=== PATIENT | female | born 1950 | race Caucasian/White ===

== ENCOUNTER 2023-02-19 06:50 | Day surgery (SDC) | payer MEDICARE, OTHER, SELFPAY ==
[2023-02-19 07:16] VITALS: BP 158/73; PULSE 97; RESP 16; TEMP 35.9; O2SAT 99; BMI 19.5
[2023-02-19] MEDS: LACTATED RINGER'S SOLUTION 1,000 ML 50 ML IV (07:34)
[2023-02-19 08:55] VITALS: BP 123/55; PULSE 66; RESP 16; TEMP 36.9; O2SAT 98
--- NOTE | 2023-02-19 09:03 | OP_ITS ---
OPERATION DATE: ??02/19/2023 PREOPERATIVE DIAGNOSIS:? Personal history of colon polyps. POSTOPERATIVE DIAGNOSIS:? Ascending colon polyp, flat lesion around the fold, approximately 5 mm, also sigmoid diverticulosis. PROCEDURE:? Colonoscopy to cecum with cold forceps polypectomy x1. SURGEON:? Jona Bang M.D. ANESTHESIA:? Monitored anesthesia care. ESTIMATED BLOOD LOSS:? Less than 1 mL. INDICATIONS AND CONSENT:? Patient is a 72-year-old female personal history of colon polyps, now presents for surveillance colonoscopy.? Indications, risks, benefits, alternatives of proceeding with colonoscopy were explained extensively to the patient, including the risks of bleeding, colon perforation or anesthetic complications.? All of her questions were answered.? Informed consent was obtained. PROCEDURE:? Patient brought to the operating room, placed in the left lateral decubitus position.? Monitored anesthesia care was provided.? Rectal exam was performed which showed no masses or blood.? The scope was inserted into the anal canal.? Under direct visualization was advanced.? With the aid of abdominal compression, it was advanced to the cecum.? There was noted to be a redundant, tortuous colon with a good prep.? Cecal markings were clearly identified.? Upon withdrawal of the scope, mucosal surfaces were carefully examined.? Within the ascending colon, around the fold, there was a flat, low lesion, approximately 5 mm that was removed in a piecemeal fashion with cold biopsy forceps with good hemostasis.? No other mass lesions were noted.? There was severe sigmoid diverticulosis with redundancy of the colon.? The scope was retroflexed in the anal canal.? There were noted to be some prominent rectal veins.? No significant hemorrhoidal disease.? Scope was then withdrawn.? Patient tolerated procedure well, was sent to recovery room in good condition. CC:? Patient?s family physician WILLI
[2023-02-19 09:10] VITALS: BP 112/56; PULSE 52; RESP 14; O2SAT 100
[2023-02-19 09:25] VITALS: BP 128/60; PULSE 56; RESP 16; O2SAT 100
[2023-02-19 09:40] VITALS: BP 144/68; PULSE 54; RESP 14; O2SAT 100
== END 2023-02-19 09:45 | disposition home or self-care (01) ==
PROVIDERS: PCP Family Medicine; Visit Provider Surgery
PROC: (CPT 45380; principal; 2023-02-19 08:10)
DX: D12.2 Benign neoplasm of ascending colon (principal); Z86.010 Personal history of colon polyps; E03.9 Hypothyroidism, unspecified; E55.9 Vitamin D deficiency, unspecified; Z79.899 Other long term (current) drug therapy; Z79.890 Hormone replacement therapy; M54.16 Radiculopathy, lumbar region; Z90.710 Acquired absence of both cervix and uterus
CPT/HCPCS: 45380; 36415; 88305; J2704

== ENCOUNTER 2023-06-27 09:46 | Outpatient (OUT) | payer MEDICARE, OTHER, SELFPAY ==
--- NOTE | 2023-06-27 09:48 | MM_ITS ---
Patient: PARTH JOHNSON Exam Date: 06/27/2023 : 1950 Gender:F Ordering : DR Joel Arrington . Admission #: [id number] Family : Order #: [id number] CLICK HERE TO VIEW EXAM RADIOLOGY REPORT PROCEDURE: MM TOMOSYNTHESIS SCREENING BI COMPARISON: MG MAMM SCREEN 3D REYES CAD, 06/25/2021. MG MAMM SCREEN 3D REYES CAD, 06/26/2022. INDICATIONS: Screening Calculator Name NCI Breast Cancer Risk Assessment Tool 5 Year Breast Cancer Risk 2.60% Lifetime Breast Cancer Risk 7.00% Personal Breast Cancer No Personal Ovarian Cancer No Treatments None Family Cancers None LOCATION: [facility] BREAST COMPOSITION: Heterogeneously dense,which may obscure small masses. FINDINGS: DIAGNOSTIC CATEGORY 2--BENIGN FINDING. NO CHANGE FROM COMPARISON. Scattered benign-appearing calcifications are present. Scattered benign-appearing lymph nodes are present. RIGHT BREAST: No significant suspicious finding. LEFT BREAST: No significant suspicious finding. RECOMMENDATIONS: ROUTINE MAMMOGRAM AND CLINICAL EVALUATION IN 12 MONTHS. PLEASE NOTE: A NORMAL MAMMOGRAM DOES NOT EXCLUDE THE POSSIBILITY OF BREAST CANCER. A CLINICALLY SUSPICIOUS PALPABLE LUMP SHOULD BE BIOPSIED. Dictated by: Chapincito Lion MD on 06/27/2023 at 10:46 Approved by: Chapincito Lion MD on 06/27/2023 at 10:48
== END 2023-06-27 09:47 | disposition home or self-care (01) ==
LOC: MAMMO 09:46
PROVIDERS: PCP Family Medicine; Visit Provider Family Medicine
DX: Z12.31 Encounter for screening mammogram for malignant neoplasm of breast (principal)
CPT/HCPCS: 77063; 77067

== ENCOUNTER 2023-12-16 10:24 | Outpatient (OUT) | payer MEDICARE, OTHER, SELFPAY ==
--- OUTSIDE RECORDS SUMMARY | 2023-12-16 10:34 | XMS_ITS | CCD ---
Author Organization [facility] Care Team Providers Care Pan Shover Name Role Phone MURPHY, DR RICH Admitting Unavailable HOY, DR RICH Attending Unavailable HOY, DR RICH Consulting Unavailable HOY, DR RICH Primary Care Unavailable ZIEBER, DR JESUS Grant Consulting Unavailable HOY, DR RICH Admitting Unavailable HOY, DR RICH Attending Unavailable HOY, DR RICH Consulting Unavailable HOY, DR RICH Primary Care Unavailable HOY, DR RICH Attending Unavailable HOY, DR RICH Consulting Unavailable HOY, DR RICH Primary Care Unavailable HOY, DR RICH Admitting Unavailable ZIEBER, DR JESUS Grant Consulting Unavailable Bello II, Nathaniel Liu Primary Care Provider [phone] NATHANIEL BELLO II Primary Care Unavailable SERHAL, LISA Referring Unavailable SERHAL, LISA Attending Unavailable BELLO II, NATHANIEL Liu Referring Unavailable BELLO II, NATHANIEL B Primary Care Unavailable SERHAL, LISA Referring Unavailable BELLO II, NATHANIEL B Primary Care Unavailable Hilario Arrington Primary Care Physician Jona REYES Attending Unavailable VinyHilario Referring Unavailable NILL, Jona Grant Attending Unavailable NILL, Jona Grant Attending Unavailable Allergies Allergy Classification Reported Allergen(s) Allergy Type Date of Onset Reaction(s) Facility (3 sources) Aspirin; Translations: [ASPIRIN] Drug Allergy 9 [facility] Repository (2 sources) Aspirin; Translations: [aspirin] Drug Allergy 9 GI Upset, Nausea and vomiting (disorder) [facility] Work Phone: (2 sources) levothyroxine; Translations: [LEVOTHYROXINE] Drug Allergy 3 Other: See Comments [facility] (2 sources) Risedronate; Translations: [RISEDRONATE SODIUM] Drug Allergy 3 Unknown [facility] Medications Current Medications Medication Drug Class(es) Dates Sig (Normalized) Sig (Original) multivitamin with minerals (1 source) Start: 01-10-2023 multivitamin with minerals Refill(s) 0, Oral Start Date: 01/10/23 Status: Ordered Vitamin D2 2000 intl units oral capsule (1 source) Start: 01-10-2023 take 1 capsule by mouth once daily Vitamin D2 2000 intl units oral capsule 50 mcg = 1 cap(s), Oral, Daily, cap(s), Refills(s) 0 Start Date: 01/10/23 Status: Ordered Completed/Discontinued Medications Medication Drug Class(es) Dates Sig (Normalized) Sig (Original) acetaminophen 325 mg oral tablet (1 source) Start: 11-14-2008 acetaminophen(TY LENOL 325 MG TAB) Take two(2) tablets every four(4) to six(6) hours as needed. 0 11/14/2008 Active Comment on above: Take two(2) tablets every four(4) to six(6) hours as needed. calcium carbonate 1625 mg / cholecalciferol 0.0125 mg / vitamin k 0.04 mg chewable tablet (1 source) Vitamin D Start: 08-14-2020 calcium-vitamin D3-vitamin K 650 mg-12.5 mcg-40 mcg chew Take by mouth. 0 08/14/2020 Active Comment on above: Take by mouth. cholecalciferol, vitamin D3, (D3-5000 ORAL) (1 source) cholecalciferol, vitamin D3, (D3-5000 ORAL) Take by mouth. 0 Active Comment on above: Take by mouth. levothyroxine sodium 0.075 mg oral tablet (3 sources) l-Thyroxine Start: 01-10-2023 take 4 tablets by mouth once daily Start: 09-14-2021 End: 09-11-2022 take 1 tablet by mouth once daily levothyroxine (SYNTHROID) 75 mcg tablet Take 1 tablet by mouth once daily. 90 tablet 3 09/11/2022 Active Comment on above: Take 1 tablet by stephanie th once daily. magnesium oxide 400 mg oral tablet (1 source) Start: 08-14-2020 take 1 tablet by mouth once daily magnesium oxide (MAG-OX) 400 mg (241.3 mg magnesium) tablet Take 1 tablet by mouth once daily. 0 08/14/2020 Active Comment on above: Take 1 tablet by stephanie th once daily. Problems Problem Classification Problem Date Documented Da te Episodic/Chronic Allergic reactions (1 source) Eczema 01-10-2023 Episodic Cancer of thyroid (3 sources) Papillary thyroid carcinoma; Translations: [Malignant neoplasm of thyroid gland] Onset: 02-17-2018 Chronic Complications of surgical procedures or medical care (3 sources) Postoperative hypothyroidism; Translations: [Postprocedural hypothyroidism] Onset: 09-14-2021 Chronic Deficiency and other anemia (1 source) Anemia, unspecified; Translations: [ANEMIA UNSPECIFIED] Onset: 07-29-2022 Episodic Diabetes mellitus without complication (1 source) Other abnormal glucose; Translations: [OTHER ABNORMAL GLUCOSE] Onset: 07-29-2022 Episodic Disorders of lipid metabolism (1 source) Hyperlipidemia, unspecified; Translations: [HYPERLIPIDEMIA UNSPECIFIED] Onset: 07-29-2022 Chronic Menopausal disorders (1 source) Other primary ovarian failure; Translations: [OTHER PRIMARY OVARIAN FAILURE] Onset: 08-10-2022 Chronic Nutritional deficiencies (5 sources) Vitamin D deficiency, unspecified; Translations: [Vitamin D deficiency] Onset: 07-25-2022 Chronic Other and unspecified benign neoplasm (1 source) Adenomatous polyp of colon 01-21-2023 Episodic Other and unspecified benign neoplasm (1 source) History of polyp of colon 01-21-2023 Episodic Other bone disease and musculoskeletal deformities (4 sources) Other specified disorders of bone density and structure, unspecified site; Translations: [OTH D/O BONE DEN STRUCT UNS SITE] Onset: 08-05-2022 Episodic Other bone disease and musculoskeletal deformities (1 source) Other specified disorders of bone density and structure, left thigh; Translations: [OTH D/O BONE DEN STRUCT LT THIGH] Onset: 08-10-2022 Episodic Other bone disease and musculoskeletal deformities (1 source) Osteopenia 01-10-2023 Episodic Other screening for suspected conditions (not mental disorders or infectious disease) (4 sources) Encounter for screening mammogram for malignant neoplasm of breast; Translations: [ENC SCR MAMMO MALIG NEOPLASM BREAST] Onset: 06-26-2022 Episodic Other skin disorders (1 source) Skin tag 01-21-2023 Episodic Spondylosis; intervertebral disc disorders; other back problems (1 source) Lumbar radiculopathy 01-10-2023 Episodic Thyroid disorders (3 sources) Hypothyroidism, unspecified; Translations: [Non-toxic uninodular goiter] Onset: 12-31-2016 12-31-2016 Chronic Unclassified (1 source) Body mass index 20-24 - normal 01-21-2023 Results Test Name Value Interpretation Reference Range Facility Ambulatory Visit Summaryon 0 03-05-2023 Ambulatory Visit Summary PARTH JOHNSON :1950 Visit Date:03/04/2023 Ambulatory Visit Instructions Your Diagnosis Benign neoplasm of ascending colon Your Care Team Attending Physician - AMY DEJESUS, Jona Grant Primary Care Physician - Murphy DEJESUS, Hilario This Is Your Medications List Contact prescribing physician if questions or concerns ergocalciferol (Vitamin D2 2000 intl units oral capsule) levothyroxine (Synthroid 75 mcg Tab) multivitamin with minerals Procedures Performed Colonoscopy (02/19/2023), Colonoscopy (11/10/2017), Colonoscopy (2006), section, Hysterectomy, Thyroidectomy. Medications What How Much When Instructions Unchanged ergocalciferol (Vitamin D2 2000 intl units oral capsule) 1 Capsules By Mouth Every day Contact prescribing physician if questions or concerns Unchanged levothyroxine (Synthroid 75 mcg Tab) 75 Unknown, ORAL, 4 Refill(s), Take 1 tablet by mouth once daily. Contact prescribing physician if questions or concerns Unchanged multivitamin with minerals Oral Contact prescribing physician if questions or concerns Allergies aspirin (Nausea and vomiting) Problems Ongoing - Any problem that you are currently receiving treatment for. Anorectal skin tags BMI 20.0-20.9, adult Eczema Hypothyroidism Lumbar radiculopathy Osteopenia Personal history of colonic polyps Serrated adenoma of colon Tubular adenoma of colon Vitamin D deficiency Normal [facility] General Surgery Office/Clini c Noteon 03-05-2023 General Surgery Office/Clinic Note Chief Complaint colonosocpy follow up HPI Staff 13 day post operative follow up post colonoscopy with ascending colon polypectomy. History of Present Illness s/p colonoscopy done for personal h/o colon polyps, patient with flat 5 mm lesion in ascending colon, around fold, removed in piecemeal fashion, pathology tubular adenoma; doing well, denies abd pain or blood in stools. Assessment/Plan 1. Benign neoplasm of ascending colon (D12.2: Benign neoplasm of ascending colon) plan surveillance colonoscopy in 1 year, call sooner if problems/questions. Follow-up No qualifying data available Problem List/Past Medical History Ongoing Anorectal skin tags BMI 20.0-20.9, adult Eczema Hypothyroidism Lumbar radiculopathy Osteopenia Personal history of colonic polyps Serrated adenoma of colon Tubular adenoma of colon Vitamin D deficiency Historical No qualifying data Procedure/Surgical History Colonoscopy (02/19/2023), Colonoscopy (11/10/2017), Colonoscopy (2006), section, Hysterectomy, Thyroidectomy. Medications multivitamin with minerals Synthroid 75 mcg Tab Vitamin D2 2000 intl units oral capsule, 50 mcg= 1 cap(s), Oral, Daily Allergies aspirin (Nausea and vomiting) Social History Alcohol - Denies Alcohol Use, 01/21/2023 Substance Abuse - Denies Substance Abuse, 01/21/2023 Tobacco Never (less than 100 in lifetime) Tobacco Use:. Never Smokeless Tobacco Use:., 01/21/2023 Family History Family history is negative Immunizations Vaccine Date Status Comments influenza virus vaccine, inactivated 06/27/2022 Recorded SARS-CoV-2 (COVID-19) [id number] 06/27/2022 Recorded SARSCoV2 mRNA(mdrxnfedw-fghv-t ucros) vac 03/23/2022 Recorded SARS-CoV-2 (COVID-19) mRNA BNT-162b2 vax 06/22/2021 Recorded 2023-01-10: [id number] SARS-CoV-2 (COVID-19) mRNA BNT-162b2 vax 11/28/2020 Recorded SARS-CoV-2 (COVID-19) mRNA BNT-162b2 vax 11/06/2020 Recorded Normal [facility] Comment on above: Result Comment: Elec tronically Signed By: AMY DEJESUS, Jona De Jesus\Date and Time Signed: 03/05/23 05:51 EDT Reminderson 03-05-2023 Reminders - From: Maia Cisneros LPN To: [facility] - Clinical; Sent: 03/05/2023 07:50:16 EDT Show up: 01/20/2024 07:00:00 EDT Subject: colonoscopy recall Due Date/Time: 02/20/2024 07:00:00 EDT Reminder/Recall Patient due for surveillance colonoscopy 02/20/2024. Normal [facility] Outside Colonoscopyon 2022 Outside Colonoscopy [id number]#1. 00CD:127 Normal [facility] Pathology Noteon 02-24-2023 Pathology Note [id number]#1. 00CD:127 Normal [facility] Consent for Procedure/Surger yon 01-22-2023 Consent for Procedure/Surgery [id number] .00CD:127 Normal [facility] Facesheeton 01-22-2023 Facesheet [id number]#1 .00CD:127 [facility] Ambulatory Visit Summaryon 0 01-21-2023 Ambulatory Visit Summary ELIZABETH PARTH Keri :1950 Visit Date:01/21/2023 Ambulatory Visit Instructions Your Diagnosis Personal history of colonic polyps Anorectal skin tags Your Care Team Attending Physician - Jona REYES MD Primary Care Physician - Murphy DEJESUS, Hilario Referring Physician - Hilario Arrington MD This Is Your Medications List Contact prescribing physician if questions or concerns ergocalciferol (Vitamin D2 2000 intl units oral capsule) levothyroxine (Synthroid 75 mcg Tab) multivitamin with minerals Procedures Performed Colonoscopy (11/10/2017), Colonoscopy (2006), section, Hysterectomy, Thyroidectomy. Discharge Vitals Heart Rate (Peripheral) 72 Respiratory Rate 16 Blood Pressure 120/72 Height 165.1 cm Height 65 in Weight 55.5 kg Weight 122.1 lb BMI 20.36 Medications What How Much When Instructions Unchanged ergocalciferol (Vitamin D2 2000 intl units oral capsule) 1 Capsules By Mouth Every day Contact prescribing physician if questions or concerns Unchanged levothyroxine (Synthroid 75 mcg Tab) 75 Unknown, ORAL, 4 Refill(s), Take 1 tablet by mouth once daily. Contact prescribing physician if questions or concerns Unchanged multivitamin with minerals Oral Contact prescribing physician if questions or concerns Allergies aspirin (Nausea and vomiting) Problems Ongoing - Any problem that you are currently receiving treatment for. Anorectal skin tags BMI 20.0-20.9, adult Eczema Hypothyroidism Lumbar radiculopathy Osteopenia Personal history of colonic polyps Serrated adenoma of colon Vitamin D deficiency Normal [facility] Physician Referralon 023 Physician Referral [id number] .00CD:127 Normal [facility] Physician Referralon 023 Physician Referral [id number] .00CD:127 Normal [facility] TSH BLDon 09-12-2022 TSH Qn 0.314 m[IU]/L 0.270 - 4.200 mIU/L [facility] Thyroglobulin and Thyrogobul in Ab panelon 09-12-2022 Thyroglobulin [Mass/Vol] Low 1.6 - 59.9 ng/mL [facility] Thyroglobulin Ab Qn 1.1 [IU]/mL <14.4 IU/mL [facility] Thyroglobulin Ab Qn <4.0 IU/mL [facility] Thyroglobulin, Serum Low 1.6 - 5 0.0 ng/mL [facility] CNOVon 09-11-2022 CNOV Office Visit (ENDOCC ) PARTH JOHNSON ([id number]) 1950 F Date Time Provider Department 09/11/22 3:40 PM LISA FOSTER ENDOC During your visit today, we recorded the following information about you: Pulse Blood pressure Weight Height 61/minute 132/84 54.9 kg 1.651 m Lisa Foster MD 09/11/2022 4:06 PM Signed F/u hypothyroidism and PTC. Last visit 09/14/21 Current Outpatient Medications Medication Sig Dispense Refill levothyroxine (SYNTHROID) 75 mcg tablet Take 1 tablet by mouth once daily. 90 tablet 3 calcium-vitamin D3-vitamin K (VIACTIV) 650 mg-12.5 mcg-40 mcg chew Take by mouth. magnesium oxide (MAG-OX) 400 mg (241.3 mg magnesium) tablet Take 1 tablet by mouth once daily. acetaminophen(TYLENOL 325 MG TAB) Take two(2) tablets every four(4) to six(6) hours as needed. 0 No current facility-administered medications for this visit. Interval hx: Doing well overall. Exc 1/2 hour in am. Taking L-T4 75 mcg one tab daily. Takes appropriately in am, except again takes supplements within 2-3 hrs. Not on Biotin. Denies flutters in chest. No significant weight changes. No neck lumps. She Saw Dr Castro last in February 2020 Ultrasound examination was performed in the office and was good. Rec to RTC as needed. PE: 09/11/22 1535 BP: 132/84 Pulse: 61 Weight: 54.9 kg (121 lb) Height: 165.1 cm (5' 5 ) GA NAD. No palpable mass in the thyroid bed and and no cervical adenopathy. Previous laboratory results: 07/25/22 TSH 0.639, Tg not done. Component Latest Ref Rng AND Units 11/19/2021 TSH 0.270 - 4.200 mIU/L 0.445 Thyroglobulin Ab <14.4 IU/mL 2.4 Thyroglobulin 1.6 - 59.9 ng/mL <0.2 (L) Component Latest Ref Rng AND Units 02/07/2020 08/09/2020 10/16/2020 Thyroglobulin 1.6 - 59.9 ng/mL <0.2 (L) <0.2 (L) TG Antibody Screen <14.4 IU/mL 2.1 2.3 TSH 0.270 - 4.200 uU/mL 0.162 (L) 0.084 (L) 0.288 Component Latest Ref Rng AND Units 02/03/2019 Thyroglobulin 1.6 - 59.9 ng/mL <0.2 (L) TG Antibody Screen <14.4 IU/mL 2.4 TSH 0.400 - 5.500 uU/mL 0.330 (L) Component Latest Ref Rng AND Units 12/04/2016 12/04/2016 01/14/2017 08/14/201702/16/2018 07/21/2018 12:00 AM 12:00 AM Thyroglobulin 1.6 - 59.9 ng/mL 217.0 (H) <0.2 (L) <0.2 (L) <0.2 (L) TG Antibody Screen <14.4 IU/mL 94.2 (H) 5.4 3.2 2.7 TSH 0.400 - 5.500 uU/mL 3.100 3.100 22.260 (H) 0.428 0.780 Thyroglobulin Ab <14.4 IU/mL 94.2 (H) 3.2 Free T4 0.9 - 1.7 ng/dL 1.1 1.7 1.6 [facility] 08/11/17 TSH 34 - no Tg 10/10/2017 : [facility]: TSH 0.049 Tg Ab by Genaro 1.3( 0-0.9) Tg by LCM<0.2 [facility] TSH 0.052 Tg Abd Genaro <1.0 Impression and recommendations: 72 yo female patient with PTC. Euthyroid with low Tg level. Total thyroidectomy on 01/24/17. Dr Castro main. 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 Chronic lymphocytic thyroiditis. Four lymph nodes, negative for neoplasm (0/4). No evidence of vascular invasion, lymphatic invasion or miquel-thyroidal soft tissue invasion. Carcinoma does not involve the margins of excision (closest < 0.1 cm). The pathologic stage is pT1b pN0 pMX, based on the evaluation of four uninvolved miquel-thyroidal lymph nodes (0/4). No postop I 131. TgAb positive prior to surgery in January 2017 but have normalized since , which is a good sign Neck US unremarkable in 08/2017, 02/2018, 02/2019 and 02/[address] Castro rec RTC as needed for neck US. Post surgical hypothyroidism. Clinically euthyroid on Synthroid 75 mcg daily. TSH at goal, with undetectable Tg, but needs updated labs. Rec: Get TSH/Tg on way out. Continue same dose of Levothyroxine pending results.. Follow up 12 months. Call earlier for questions or concerns. Some elements copied from my note 09/14/21 which have been updated where appropriate, and all reflect current medical decision making from date of this visit. I spent a total of 20 minutes on the date of the service which included preparing to see the patient, [id number] patient care, completing clinical documentation, obtaining and/or reviewing separately obtained history, performing a medically appropriate examination, counseling and educating the patient, ordering medications, tests, or procedures and care coordination. Lisa Foster MD Referring Provider: NATHANIEL BELLO II [[id number]] Allergies As of Date: 09/11/2022 Noted Allergy Reaction ACTONEL (RISEDRONATE SODIUM) 12/18/2012 16 - Unknown ASPIRIN 11/14/2008 8 - GI Upset LEVOTHYROXINE 12/18/2012 14 - Other: See Comments Comments: dizziness Date Reviewed: 09/11/2022 Reviewed by: Lisa Foster MD - Fully Assessed Reason for Visit: Thyroid Problem [110] Primary Visit Diagnosis:Postsurgica l hypothyroidism [E89.0] Other Visit Diagnosis:Papillary thyroid carcinoma (HCC) [C73] Order(s):TSH BLD [SQTS] Order #: [id number] FUTURE THYROGL (more content not included)... Normal [facility] TSH SerPl-aCncon 09-11-2022 TSH Qn 0.314 m[IU]/L Normal 0.270-4.200 [facility] Comment on above: Order Comment: Paul rai Type: BLOOD SPECIMEN Ordering Facility: [facility] Address: [address] [place] [address] Performed By: #### 3 [id number] #### [facility] CLIA [id number] OF [facility] Thyroglobulin and Thyrogobul in Ab panelon 09-11-2022 Thyroglobulin [Mass/Vol] <0.2 Low 1.6-59.9 [facility] Comment on above: Order Comment: Paul rai Type: BLOOD SPECIMEN Ordering Facility: [facility] Address: [address] [place] [address] Result Comment: The Thyroglobulin test was performed using the Siemens Immulite chemiluminescent immunometric method. Results obtained with different assay methods or kits cannot be used interchangeably. Performed By: #### 5 [id number] #### [facility] CLIA [id number] [address] [place] [address] OF [facility] Thyroglobulin Ab Qn 1.1 [IU]/mL Normal <14.4 [facility] Comment on above: Order Comment: Speci men Type: BLOOD SPECIMEN Ordering Facility: [facility] Address: [address] [place] [address] Result Comment: The Thyroglobulin Antibody test was performed using the [employer] Ca[employer] Puller chemiluminescent microparticle immunoassay method. Results obtained with different assay methods or kits cannot be used interchangeably. <0.9 The Thyroglobulin Antibody test was performed using the ReadyPulse[employer] DXI paramagnetic particle chemiluminescent immunoassay method. Results obtained with different assay methods or kits cannot be used interchangeably. Performed By: #### 5 [id number] #### [facility] CLIA [id number] [address] [place] [address] THYROGLOBULIN, SERUM <0.1 Low 1.6-50.0 [facility] Comment on above: Order Comment: Speci men Type: BLOOD SPECIMEN Ordering Facility: [facility] Address: [address] [place] [address] Result Comment: The Thyroglobulin test was performed using the [employer] DXI paramagnetic particle chemiluminescent immunoassay method. Results obtained with different assay methods or kits cannot be used interchangeably. Performed By: #### 5 7780-9 #### [facility] CLIA [id number] [address] [place] [address] OF KRISTAL XR DEXA BONE DENSITYon 08-05 XR DEXA BONE DENSITY EXAMINATION: XR DEX A BONE DENSITY, 08/05/2022 10:17 AM EST HISTORY: Primary ovarian failure COMPARISON: DEXA bone densitometry 2020 TECHNIQUE: Dual-energy X-ray absorptiometry (DEXA) bone density study performed for the axial skeleton. FINDINGS: SPINE ANALYSIS: Average bone mineral density is 1.220 g/cm2. T-score (standard deviation relative to young adult mean): 0.3 . Unchanged. HIP ANALYSIS: Lowest bone mineral density is within the left femoral neck, 0.827 g/cm2. T-score (standard deviation relative to young adult mean): -1.5 . +0.1% change since prior study. IMPRESSION: World Rah Organization Classification: Osteopenia - Moderate Fracture Risk Electronically authenticated by: JESUS TOBAR Date: 2022-08-05 16:33 Normal [facility] CBC AUTO DIFFon 07-25-2022 BASO # 0.1 103/ul Normal 0.0-0.1 [facility] Comment on above: Performed By: #### C BC #### [facility] [address] [address] [address] Ana Henson Basophils/100 WBC (Bld) 0.9 % Normal 0.2-2.0 [facility] Comment on above: Performed By: #### C BC #### [facility] [address] [place] [address] Dr. Ana Henson EO # 0.2 103/ul Normal 0.0-0.7 [facility] Comment on above: Performed By: #### C BC #### [facility] [address] [address] [address] Ana Henson Eosinophils/100 WBC (Bld) 2.4 % Normal 0.9-7.0 [facility] Comment on above: Performed By: #### C BC #### [facility] [address] [address] [address] Ana Henson Erythrocyte distribution width (RBC) [Ratio] 14.4 % Normal 11.0-15.0 [facility] Comment on above: Performed By: #### C BC #### [facility] [address] [place] [address] Dr. Ana Henson Hematocrit (Bld) [Volume fraction] 41.6 % Normal 36.0-48.0 [facility] Comment on above: Performed By: #### C BC #### [facility] [address] [address] [address] Ana Henson Hemoglobin (Bld) [Mass/Vol] 13.6 g/dL Normal 12.0-16.0 [facility] Comment on above: Performed By: #### C BC #### [facility] [address] [place] [address] Dr. Ana Henson IG # 0.02 10e3/ul Normal 0.00-0.03 [facility] Comment on above: Performed By: #### C BC #### [facility] [address] [place] [address] Dr. Ana Henson IG % 0.2 % Normal 0.0-0.5 [facility] Comment on above: Performed By: #### C BC #### [facility] [address] [place] [address] Dr. Ana Henson LYMPH # 1.8 103/ul Normal 1.2-3.8 [facility] Comment on above: Performed By: #### C BC #### [facility] [address] [place] [address] Dr. Ana Henson Lymphocytes/100 WBC (Bld) 20.8 % Normal 20.5-60.0 [facility] Comment on above: Performed By: #### C BC #### [facility] [address] [place] [address] Dr. Ana Henson MANUAL DIFF REQ NO Normal [facility] Comment on above: Performed By: #### C BC #### [facility] [address] [place] [address] Dr. Ana Henson MCH (RBC) [Entitic mass] 29.5 pg Normal 26.7-34.0 [facility] Comment on above: Performed By: #### C BC #### [facility] [address] [place] [address] Dr. Ana Henson MCHC (RBC) [Mass/Vol] 32.7 g/dL Normal 29.9-35.2 [facility] [facility] Comment on above: Performed By: #### C BC #### [facility] [address] [place] [address] Dr. Ana Henson MCV (RBC) [Entitic vol] 90.2 fL Normal 81.0-99.0 [facility] Comment on above: Performed By: #### C BC #### [facility] [address] [place] [address] Dr. Ana Henson MONO # 0.9 103/ul Critically high 0.3-0.8 [facility] Comment on above: Performed By: #### C BC #### [facility] [address] [place] [address] Dr. Ana Henson Monocytes/100 WBC (Bld) 10.5 % Normal 1.7-12.0 [facility] Comment on above: Performed By: #### C BC #### [facility] [address] [place] [address] Dr. Ana Henson NEUT # 5.6 103/ul Normal 1.4-6.5 [facility] Comment on above: Performed By: #### C BC #### [facility] [address] [place] [address] Dr. Ana Henson Neutrophils/100 WBC (Bld) 65.2 % Normal 43.0-75.0 [facility] Comment on above: Performed By: #### C BC #### [facility] [address] [place] [address] Dr. Ana Henson Platelet mean volume (Bld) [Entitic vol] 9.2 fL Critically low 9.5-13.5 [facility] Comment on above: Performed By: #### C BC #### [facility] [address] [place] [address] Dr. Ana Henson PLT 310 103/ul Normal 150-450 [facility] Comment on above: Performed By: #### C BC #### [facility] [address] [place] [address] Dr. Ana Henson RBC 4.61 106/ul Normal 4.20-5.40 [facility] Comment on above: Performed By: #### C BC #### [facility] [address] [place] [address] Dr. Ana Henson WBC 8.6 103/ul Normal 4.0-11.0 [facility] Comment on above: Performed By: #### C BC #### [facility] [address] [place] [address] Dr. Ana Henson FREE THYROXINE INDEX T7on 11 -17-2022 FTI 3.66 Normal 1.30-4.50 [facility] Comment on above: Performed By: #### T SH, LIPID, T7, CMP #### [facility] [address] [address] [address] Ana Henson T3U 37.0 % Normal 30.0-39.0 [facility] Comment on above: Performed By: #### T SH, LIPID, T7, CMP #### [facility] [address] [address] [address] Ana Henson T4 [Mass/Vol] 9.90 ug/dL Normal 4.80-13.90 [facility] Comment on above: Performed By: #### T SH, LIPID, T7, CMP #### [facility] [address] [address] [address] Ana Henson GLYCOHEMOGLOBIN A1Con 2021 ADA RECOMMENDATION SEE BELOW Normal [facility] Comment on above: Result Comment: ADA RECOMMENDED LIMIT 4.0 - 6.0 ADA THERAPEUTIC TARGET < 7.0 ACTION SUGGESTED > 7.0 Performed By: #### A 1C #### [facility] [address] [address] [address] Ana Henson Glucose [Mass/Vol] 120 mg/dL Normal [facility] Comment on above: Performed By: #### A 1C #### [facility] [address] [address] [address] Ana Henson HbA1c (Bld) [Mass fraction] 5.8 % Normal 4.5-6.2 [facility] Comment on above: Performed By: #### A 1C #### [facility] [address] [address] [address] Ana Henson IRONon 07-25-2022 Iron [Mass/Vol] 75.0 ug/dL Normal 50.0-170.0 [facility] Comment on above: Performed By: #### V ITAD, IRON #### [facility] [address] [address] [address] Ana Henson LIPID PROFILEon 07-25-2022 CHOL-HDL RATIO NORM SEE BELOW Normal [facility] Comment on above: Result Comment: 3.3 - 4.4 LOW RISK 4.4 - 7.1 AVERAGE RISK 7.1 - 11.0 MODERATE RISK >11.0 HIGH RISK Performed By: #### T SH, LIPID, T7, CMP #### [facility] [address] [address] [address] Ana Henson Cholesterol [Mass/Vol] 244 mg/dL Critically high <=200 [facility] Comment on above: Performed By: #### T SH, LIPID, T7, CMP #### [facility] [address] [address] [address] Ana Henson Cholesterol in HDL [Mass/Vol] 59 mg/dL Normal 40-60 [facility] Comment on above: Performed By: #### T SH, LIPID, T7, CMP #### [facility] [address] [place] [address] Dr. Ana Henson Cholesterol in LDL [Mass/Vol] 157.6 mg/dL Normal [facility] Comment on above: Performed By: #### T SH, LIPID, T7, CMP #### [facility] [address] [address] [address] Ana Henson Cholesterol.total/Ch olesterol in HDL [Mass ratio] 4.1 {ratio} Normal [facility] Comment on above: Performed By: #### T SH, LIPID, T7, CMP #### [facility] [address] [address] [address] Ana Henson HDL NORMAL > or = 60 mg/dl - LO W CARDIOVASCULAR RISK <40 mg/dl - HIGH CARDIOVASCULAR RISK Normal [facility] Comment on above: Performed By: #### T SH, LIPID, T7, CMP #### [facility] [address] [address] [address] Ana Henson LDL CALC NORMAL SEE BELOW Normal [facility] Comment on above: Result Comment: <100 mg/dl OPTIMAL 100 - 129 mg/dl NEAR OR ABOVE OPTIMAL 130 - 159 mg/dl BORDERLINE HIGH 160 - 189 mg/dl HIGH >190 mg/dl VERY HIGH Performed By: #### T SH, LIPID, T7, CMP #### [facility] [address] [address] [address] Ana Henson Triglyceride [Mass/Vol] 137 mg/dL Normal <=150 [facility] Comment on above: Performed By: #### T SH, LIPID, T7, CMP #### [facility] [address] [address] [address] Ana Henson VLDL CALC 27.4 mg/dL Normal [facility] Comment on above: Performed By: #### T SH, LIPID, T7, CMP #### [facility] [address] [address] [address] Ana Henson PROF 14(COMP METB)on 022 Albumin [Mass/Vol] 3.6 g/dL Normal 3.4-5.0 [facility] Comment on above: Performed By: #### T SH, LIPID, T7, CMP #### [facility] [address] [address] [address] Ana Henson Albumin/Globulin [Mass ratio] 0.9 {ratio} Normal [facility] Comment on above: Performed By: #### T SH, LIPID, T7, CMP #### [facility] [address] [address] [address] Ana Henson ALP [Catalytic activity/Vol] 66 U/L Normal 46-116 [facility] Comment on above: Performed By: #### T SH, LIPID, T7, CMP #### [facility] [address] [address] [address] Ana Henson ALT [Catalytic activity/Vol] 32 U/L Normal 14-59 [facility] Comment on above: Performed By: #### T SH, LIPID, T7, CMP #### [facility] [address] [address] [address] Ana Henson Anion gap [Moles/Vol] 9.0 mmol/L Normal [facility] Comment on above: Performed By: #### T SH, LIPID, T7, CMP #### [facility] [address] [address] [address] Ana Henson AST [Catalytic activity/Vol] 28 U/L Normal 15-37 [facility] Comment on above: Performed By: #### T SH, LIPID, T7, CMP #### [facility] [address] [address] [address] Ana Henson Bilirubin [Mass/Vol] 0.3 mg/dL Normal 0.2-1.0 [facility] Comment on above: Performed By: #### T SH, LIPID, T7, CMP #### [facility] [address] [place] [address] Dr. Ana Henson Calcium [Mass/Vol] 9.0 mg/dL Normal 8.5-10.1 [facility] Comment on above: Performed By: #### T SH, LIPID, T7, CMP #### [facility] [address] [place] [address] Dr. Ana Henson Chloride [Moles/Vol] 103 mmol/L Normal 98-107 [facility] Comment on above: Performed By: #### T SH, LIPID, T7, CMP #### [facility] [address] [place] [address] Dr. Ana Henson CO2 [Moles/Vol] 27.8 mmol/L Normal 21.0-32.0 [facility] Comment on above: Performed By: #### T SH, LIPID, T7, CMP #### [facility] [address] [place] [address] Dr. Ana Henson Creatinine [Mass/Vol] 0.99 mg/dL Normal 0.55-1.02 [facility] Comment on above: Performed By: #### T SH, LIPID, T7, CMP #### [facility] [address] [place] [address] Dr. Ana Henson EGFR-AF GIBRALTARIAN >60 Normal >=60 [facility] Comment on above: Performed By: #### T SH, LIPID, T7, CMP #### [facility] [address] [place] [address] Dr. Ana Henson EGFR-NON AF GIBRALTARIAN 55 mL/min/1.73m2 Critically low >=60 [facility] Comment on above: Performed By: #### T SH, LIPID, T7, CMP #### [facility] [address] [address] [address] Ana Henson Globulin (S) [Mass/Vol] 4.0 g/dL Normal [facility] Comment on above: Performed By: #### T SH, LIPID, T7, CMP #### [facility] [address] [address] [address] Ana Henson Glucose [Mass/Vol] 92 mg/dL Normal 74-106 [facility] Comment on above: Performed By: #### T SH, LIPID, T7, CMP #### [facility] [address] [address] [address] Ana Henson Potassium [Moles/Vol] 4.8 mmol/L Normal 3.5-5.1 [facility] Comment on above: Performed By: #### T SH, LIPID, T7, CMP #### [facility] [address] [address] [address] Ana Henson Protein [Mass/Vol] 7.6 g/dL Normal 6.4-8.2 [facility] Comment on above: Performed By: #### T SH, LIPID, T7, CMP #### [facility] [address] [address] [address] Ana Henson Sodium [Moles/Vol] 135 mmol/L Critically low 136-145 [facility] Comment on above: Performed By: #### T SH, LIPID, T7, CMP #### [facility] [address] [address] [address] Ana Henson Urea nitrogen [Mass/Vol] 19.0 mg/dL Critically high 7.0-18.0 [facility] Comment on above: Performed By: #### T SH, LIPID, T7, CMP #### [facility] [address] [address] [address] Ana Henson Urea nitrogen/Creatinine [Mass ratio] 19.2 mg/mg Normal [facility] Comment on above: Performed By: #### T SH, LIPID, T7, CMP #### [facility] [address] [address] [address] Ana Henson TSHon 07-25-2022 TSH 0.639 uIU/mL Normal 0.358-3.740 [facility] Comment on above: Performed By: #### T SH, LIPID, T7, CMP #### [facility] [address] [place], [place] [address] Dr. Ana Henson VITAMIN D 25 OHon 07-25-2022 VIT D 25-OH 56.8 ng/mL Normal [facility] Comment on above: Performed By: #### V ITAD, IRON #### [facility] [address] [place], [place] [address] Dr. Ana Henson VIT D RANGES SEE BELOW Normal [facility] Comment on above: Result Comment: <20 ng/mL Vit D deficient 20 - <30 ng/mL Vit D insufficient 30 - 100 ng/mL Vit D sufficient >100 ng/mL Potential Toxicity Performed By: #### V ITAD, IRON #### [facility] [address] [place], [place] [address] Dr. Ana Henson MG MAMM SCREEN 3D REYES CADon 06-26-2022 MG MAMM SCREEN 3D REYES CAD Patient: PARTH JOHNSON Exam Date: 06/26/2022 : 1950 Gender:F Ordering : DR HILARIO ARRINGTON . Admission #: [id number] Family : Order #: [id number] CLICK HERE TO VIEW EXAM RADIOLOGY REPORT PROCEDURE: MAMMOGRAM SCREENING 3D BILATERAL CAD COMPARISON: MG MAMM SCREEN 3D REYES CAD, 06/25/2021. MG MAMM SCREEN REYES W CAD, 2020. INDICATIONS: Screening mammography Calculator Name NCI Breast Cancer Risk Assessment Tool 5 Year Breast Cancer Risk 2.50% Lifetime Breast Cancer Risk 7.40% Personal Breast Cancer No Personal Ovarian Cancer No Treatments None Family Cancers None LOCATION: [facility] BREAST COMPOSITION: Heterogeneously dense,which may obscure small masses. FINDINGS: DIAGNOSTIC CATEGORY 2--BENIGN FINDING: RIGHT BREAST: No significant suspicious finding. No significant change has occurred. LEFT BREAST: No significant suspicious finding. Stable, chronic asymmetry within the posterior lower-inner quadrant. No significant change has occurred. RECOMMENDATIONS: ROUTINE MAMMOGRAM AND CLINICAL EVALUATION IN 12 MONTHS. PLEASE NOTE: A NORMAL MAMMOGRAM DOES NOT EXCLUDE THE POSSIBILITY OF BREAST CANCER. A CLINICALLY SUSPICIOUS PALPABLE LUMP SHOULD BE BIOPSIED. Dictated by: Jesus Tobar M.D. on 06/26/2022 at 15:46 Approved by: Jesus Tobar M.D. on 06/26/2022 at 15:50 Normal [facility] 11-21-2021 [facility] Telephone (ENDOC) SOHAM JOHNSONORAH ([id number]) 1950 F Date Time Provider Department 11/21/21 LISA FOSTER During your visit today, we recorded the following information about you: Cm Schroeder MA 11/21/2021 3:06 PM Signed ----- Message from Lisa Foster MD sent at 11/21/2021 9:01 AM EDT ----- Thyroid labs are good. Please continue current dose of Levothyroxine. Will see you as scheduled in the summer. Please call earlier for questions or concerns. Please notify patient. Thanks, DS. Cm Schroeder MA 11/21/2021 3:08 PM Signed Spoke with Pt and gave them below information. They expressed understanding. Allergies As of Date: 11/21/2021 Noted Allergy Reaction ACTONEL (RISEDRONATE SODIUM) 12/18/2012 16 - Unknown ASPIRIN 11/14/2008 8 - GI Upset LEVOTHYROXINE 12/18/2012 14 - Other: See Comments Comments: dizziness Date Reviewed: 09/14/2021 Reviewed by: Lisa Foster MD - Fully Assessed Reason for Visit: Patient Update [1234] Results [95] Prescriptions as of 11/21/2021 - levothyroxine (SYNTHROID) 75 mcg tablet Take 1 tablet by mouth once daily. - calcium-vitamin D3-vitamin K (VIACTIV) 650 mg-12.5 mcg-40 mcg chew Take by mouth. - magnesium oxide (MAG-OX) 400 mg (241.3 mg magnesium) tablet Take 1 tablet by mouth once daily. - acetaminophen(TYLENOL 325 MG TAB) Take two(2) tablets every four(4) to six(6) hours as needed. 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] 12/31/2016 Papillary thyroid carcinoma (HCC) [C73] 02/17/2018 Postsurgical hypothyroidism [E89.0] 09/14/2021 Encounter Status:Closed by CM SCHROEDER on 11/21/21 Normal [facility] THYROGLOBULIN ABon Thyroglobulin Ab Qn 2.4 [IU]/mL Normal <14.4 [facility] Comment on above: Order Comment: Paul ria Type: BLOOD SPECIMEN Ordering Facility: [facility] Address: [address] [place] [address] Performed By: #### Wilder LEVY, 14903-2 #### [facility] CLIA [id number] [address] [place] [address] [place] TSH SerPl-aCncon 11-19-2021 TSH Qn 0.445 m[IU]/L Normal 0.270-4.200 [facility] Comment on above: Order Comment: Paul rai Type: BLOOD SPECIMEN Ordering Facility: [facility] Address: [address] [place] [address] Performed By: #### 3 016-3 #### [facility] CLIA [id number] [address] [place] [address] [place] Thyroglobulin and Thyrogobul in Ab panelon 11-19-2021 Thyroglobulin [Mass/Vol] <0.2 Low 1.6-59.9 [facility] Comment on above: Order Comment: Paul rai Type: BLOOD SPECIMEN Ordering Facility: [facility] Address: [address] [place] [address] Result Comment: The Siemens Immulite 2000 is used. Results with different assay methods or kits cannot be used interchangeably. Performed By: #### Wilder LEVY, 69424-5 #### [facility] CLIA [id number] [address] [place] [address] [place] Yareli 09-18-2021 CNPN Telephone (ENDOC) PARTH JOHNSON ([id number]) 1950 F Date Time Provider Department 09/18/21 LISA FOSTER During your visit today, we recorded the following information about you: Ed Berman 09/18/2021 12:46 PM Signed Called and left voicemail message with patient in regards to scheduling an office visit with Dr. Foster in 6 months. Advised to contact our office to schedule appointment. Allergies As of Date: 09/18/2021 Noted Allergy Reaction ACTONEL (RISEDRONATE SODIUM) 12/18/2012 16 - Unknown ASPIRIN 11/14/2008 8 - GI Upset LEVOTHYROXINE 12/18/2012 14 - Other: See Comments Comments: dizziness Date Reviewed: 09/14/2021 Reviewed by: Lisa Foster MD - Fully Assessed Reason for Visit: Appointment [186] Prescriptions as of 09/18/2021 - levothyroxine (SYNTHROID) 75 mcg tablet Take 1 tablet by mouth once daily. - calcium-vitamin D3-vitamin K (VIACTIV) 650 mg-12.5 mcg-40 mcg chew Take by mouth. - magnesium oxide (MAG-OX) 400 mg (241.3 mg magnesium) tablet Take 1 tablet by mouth once daily. - acetaminophen(TYLENOL 325 MG TAB) Take two(2) tablets every four(4) to six(6) hours as needed. 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.1] 12/31/2016 Papillary thyroid carcinoma (HCC) [C73] 02/17/2018 Postsurgical hypothyroidism [E89.0] 09/14/2021 Encounter Status:Closed by ED BERMAN on 09/18/21 Normal [facility] Vital Signs Date Time Vital Sign Value Performing Clinician Jef stahl 09-11-2022 15:35-0500 Body height 165.1 cm Lisa Foster MD Work Phone: [facility] 09-11-2022 15:35-0500 Body weight 54.88 kg Lisa Foster MD Work Phone: [facility] 09-11-2022 15:35-0500 Diastolic blood pressure 84 mm[Hg] Lisa Foster MD Work Phone: [facility] 09-11-2022 15:35-0500 Heart rate 61 /min Lisa Foster MD Work Phone: [facility] 09-11-2022 15:35-0500 Systolic blood pressure 132 mm[Hg] Lisa Foster MD Work Phone: [facility] Encounters Encounter Date Encounter Type Care Provider Facility Start: 03-04-2023 End: 03-05-2023 ambulatory Jona R KELSIEL Facility:[facility] Start: 03-04-2023 End: 03-04-2023 Patient encounter procedure Jona R KELSIEL General Surgery Nill/Said Vish Start: 02-19-2023 End: 02-20-2023 ambulatory Jona R NILL Facility:CD:[id number] Start: 01-21-2023 End: 01-22-2023 ambulatory Jona R NILL Facility:[facility] Start: 01-02-2023 ambulatory Jona NILL Facility:[facility] Start: 09-11-2022 End: 09-11-2022 ambulatory LISA FOSTER Facility:[facility] Start: 09-11-2022 End: 09-11-2022 Patient encounter procedure Lisa Foster MD Work Phone: Endocrinology Comment on above: Postsurgical hypothy roidism (Primary Dx); Papillary thyroid carcinoma (HCC) Start: 08-05-2022 End: 08-06-[address] HILARIO ARRINGTON Facility:[facility] Start: 07-25-2022 End: 07-26-[address] HILARIO ARRINGTON Facility:[facility] Start: 06-26-2022 End: 06-27-[address] HILARIO ARRINGTON Facility:[facility] Start: 11-19-2021 End: 11-19-2021 ambulatory NATHANIEL BELLO II Facility:[facility] Procedures Date Procedure Procedure Detail Performing Clinician Start: 02-19-2023 Colonoscopy Jona NI LL Start: 11-10-2017 Colonoscopy Jona NI LL Start: 12-18-2009 Mammography Lisa ramos MD Work Phone: Start: 12-18-2006 Colonoscopy Lisa ramos MD Work Phone: Start: 09-08-2006 Colonoscopy Jona NI LL section Jona NIL L Hysterectomy Jona NILL Thyroidectomy Jona NILL Plan of Treatment Date Care Activity Detail Author Start: 09-08-2022 ADVANCE DIRECTIVE DISCUSSION ADVANCE DIRECTIVE DISCUSSION [facility] Start: 09-08-2022 DEPRESSION ASSESSMENT DEPRESSION ASS ESSMENT [facility] Start: 01-15-2020 DIABETES SCREEN DIABETES SCREEN [facility] Start: 2017 BONE DENSITY BONE DENSITY [facility] Start: 12-18-2010 Mammography MAMMOGRAM [facility] Start: 12-19-2007 Colonoscopy COLONOSCOPY [facility] Start: 12-19-2007 COLORECTAL CANCER SCREENING COLORECTAL CANCER SCREENING [facility] Start: 1997 COLOGUARD (FIT-DNA) COLOGUARD (FIT-D NA) [facility] Start: [address] COLONOGRAPHY [facility] Start: 1997 FECAL OCCULT BLOOD FECAL OCCULT BLOO D [facility] Start: 1997 LIPID SCREEN LIPID SCREEN [facility] Start: 1997 SIGMOIDOSCOPY SIGMOIDOSCOPY [facility] Start: 1971 Urine microalbumin profile DTAP,TDAP ,TD (1 - Tdap) [facility] Start: 1970 ANNUAL 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 ANNUAL PCP TEAM CHRONIC DISEASE VISIT [facility] Start: 1970 HEPATITIS C SCREENING HEPATITIS C SC MEGAN [facility] Immunizations Immunization Date Immunization Notes Care Provider Fa cility 06-27-2022 influenza virus vacc ine, unspecified formulation Jona AMY [facility] 06-27-2022 SARS-CoV-2 (COVID-19 ) [id number] Jona KELSIEL [facility] 03-23-2022 SARS-CoV-2 mRNA (iqppmiialzz-dtus-tnutvp e) vaccine Jona NILL [facility] 06-22-2021 SARS-CoV-2 (COVID-19 ) mRNA BNT-162b2 vax oJna IGLESIASL [facility] Comment on above: Result Comment: 2022: [id number] 11-28-2020 SARS-CoV-2 (COVID-19 ) mRNA BNT-162b2 vax Jona EnergenoL [facility] 11-06-2020 SARS-CoV-2 (COVID-19 ) mRNA BNT-162b2 vax Jona IGLESIASL [facility] 05-31-2019 seasonal influenza, intradermal, preservative free Lisa Foster MD Work Phone: [facility] 03-26-2019 zoster vaccine recombinant Lisa Foster MD Work Phone: [facility] 10-03-2018 zoster vaccine recombinant Lisa Foster MD Work Phone: [facility] 07-02-2018 influenza, high dose seasonal, preservative-free Lisa Foster MD Work Phone: [facility] 06-30-2018 Seasonal trivalent influenza vaccine, adjuvanted, preservative free Lisa Foster MD Work Phone: [facility] 10-29-2017 pneumococcal polysaccharide vaccine, 23 valent Lisa Foster MD Work Phone: [facility] 08-28-2017 pneumococcal conjuga te vaccine, 13 valent Lisa Foster MD Work Phone: [facility] 06-08-2017 influenza, injectabl e, quadrivalent, contains preservative Lisa Foster MD Work Phone: [facility] 08-12-2016 influenza, injectabl e, quadrivalent, contains preservative Lisa Foster MD Work Phone: [facility] 05-15-2015 seasonal influenza, intradermal, preservative free Lisa Foster MD Work Phone: [facility] 11-09-2014 zoster vaccine, live Lisa charles MD Work Phone: [facility] 02-08-2014 zoster vaccine, live Lisa Se melvin DEJESUS Work Phone: [facility] 06-08-2013 influenza virus vacc ine, unspecified formulation Lisa Foster MD Work Phone: [facility] Payers Date Payer Category Payer Unknown [facility] [employer] [employer] [facility] MEDICARE SUPPLEMENT [id number] 2017-Present [phone] [address] [place] [address] Indemnity [id number] 2017 Medicare MEDICARE MEDICAR E A AND B [id number] 2017-Present [phone] [address] [address] [place] [address] Medicare [id number] 1959 Medicare [id number] 1959 Unknown [id number] 1950 Unknown [id number] 3 1950 Unknown [id number] 3 1950 Unknown [id number] 3 1950 Unknown [id number] 7 1950 Unknown [id number] 7 1950 Unknown [id number] Social History Date Type Detail Facility Start: 10-22-2017 End: 01-21-2023 Tobacco smoking status NDIS Never smoked tobacco [facility] Start: 10-22-2017 Tobacco use and exposure Smokeless tobacco non-user [facility] Start: 02-15-2020 Alcohol intake Current non-dr singh of alcohol (finding) [facility] Start: 1950 [facility] At [facility] status Never [facility] Sex Assigned At Female [facility] Clinical Note 01-21-2023 Note Date & Type Note Facility 01-21-2023 Note Chief Complaint consultation for hemorrhoid HPI Staff 72 year old female presents on consultation from Dr. Arrington for hemorrhoids. Has tried OTC wipes and creams with some relief. Prescribed Pramoxine-Zinc cream which resolved patient complaints of pain, swollen nodules and occasional bleeding. Last colonoscopy completed 11/2017 with serrated adenoma, IBS, diverticulosis and internal hemorrhoid. History of Present Illness 72 yo female with h/o hypothyroidism, lumbar radiculopathy, referred for irritated external hemorrhoids and personal h/o colon polyps; patient reports 40 year h/o perianal irritation, primarily swelling and pain, no bleeding, hemorrhoids reportedly out all the time, no change in bms or blood in stools, no straining; no previous anal/rectal surgery; last colonoscopy 2017 with serrated adenoma removed from cecum; abd operations significant for and ANEESH; no abd complaints; no asa or NSAID use; no SBE prophylaxis; no fmhx of GI malignancy or IBD. no tobacco use. Review of Systems PHQ Score Initial Depression Screen Score: 0 ROS - Provider Constitutional: no fever, no sweats, no weight loss. Eyes: yes glasses, no blurred vision, no visual loss. ENMT: no dentures, no hoarseness, no swallowing difficulties, no hearing loss, no ear infection(s), no nose bleeds. Cardiovascular: normal blood pressure, no chest pain, regular heartbeat, no heart murmur. Respiratory: no shortness of breath, no cough, no asthma, no wheezing. Gastrointestinal: no nausea, no vomiting, no diarrhea, no constipation, no blood in stool, no change in bowel habits, no abdominal pain, no hepatitis. Genitourinary: no kidney stones, no urine infection, no dysuria. Musculoskeletal: no pain, no weakness. Skin: no changing moles, no rash, no skin lumps. Neurologic: no seizures, no epilepsy, no headache. Psychiatric: no emotional or psychiatric problem. Heme/Lymph: no bleeding problems, no anemia, no blood clots, no transfusions. Allergy/Immunologic: no swollen lymph nodes/glands, no IV drug abuse. Other: Additional ROS info: Except as noted in the above Review of Systems and in the History of Present Illness, all other systems have been reviewed and are negative or noncontributory. Physical Exam Vitals & Measurements HR: 72(Peripheral) RR: 16 BP: 120/72 HT: 65 in HT: 165.1 cm WT: 55.5 kg WT: 122.1 lb BMI: 20.36 HEENT: normal conjunctiva, sclera clear, no scleral icterus, EOM intact, PERRLA, oral mucosa moist without lesions. Neck: trachea midline, no mass, symmetric, no thyromegaly or nodules, no adenopathy Respiratory: lungs CTA, respirations non labored. Cardiovascular: regular rate and rhythm, no murmur, no pedal edema or varicosities. Gastrointestinal: soft, non distended, no tenderness, no masses, no palpable hernias, diastasis recti no, no hepatosplenomegaly; normal bs rectal: no perianal irritation or bleeding; no fissures, small external anal skin tags, no inflammation, normal tone, no masses or blood. Lymphatic: no cervical adenopathy, no supraclavicular adenopathy Musculoskeletal: normal gait, digits and nails without infection, nodes, cyanosis, clubbing. Skin: no rashes, no lesions, no ulcers, no subcutaneous nodules, induration. Psychiatric/Neuro: oriented to time, place, person, judgement normal, affect appropriate for age, insight intact, no focal deficits. Tests: review of old records completed, Discussed surgical options, risks, and possible complications with patient. Assessment/Plan 1. Personal history of colonic polyps (Z86.010: Personal history of colonic polyps) plan surveillance colonoscopy under anesthesia, informed consent obtained. 2. Anorectal skin tags (K64.4: Residual hemorrhoidal skin tags) avoid irritation; wet wipes, high fiber diet and daily fiber supplement; no steroid creams. Follow-up No qualifying data available Problem List/Past Medical History Ongoing Anorectal skin tags BMI 20.0-20.9, adult Eczema Hypothyroidism Lumbar radiculopathy Osteopenia Personal history of colonic polyps Serrated adenoma of colon Vitamin D deficiency Historical No qualifying data Procedure/Surgical History Colonoscopy (11/10/2017), Colonoscopy (2006), section, Hysterectomy, Thyroidectomy. Medications multivitamin with minerals Synthroid 75 mcg Tab Vitamin D2 2000 intl units oral capsule, 50 mcg= 1 cap(s), Oral, Daily Allergies aspirin (Nausea and vomiting) Social History Alcohol - Denies Alcohol Use, 01/21/2023 Substance Abuse - Denies Substance Abuse, 01/21/2023 Tobacco Never (less than 100 in lifetime) Tobacco Use:. Never Smokeless Tobacco Use:., 01/21/2023 Family History Family history is negative Immunizations Vaccine Date Status Comments influenza virus vaccine, inactivated 06/27/2022 Recorded SARS-CoV-2 (COVID-19) [id number] 06/27/2022 Recorded SARSCoV2 mRNA([id number]) vac 03/23/2022 Recorded SARS-CoV-2 (COVID-19) mRNA BN (more content not included)... [facility] Comment on above: Result Comment: Elec tronically Signed By: AMY DEJESUS, Jona De Jesus\Date and Time Signed: 01/21/23 14:09 EDT Progress note 09-16-2022 Note Date & Type Note Facility 09-16-2022 Note HNO ID: [id number] Author: Sonali Song MA Service: ? Author Type: Supervisor Shuttle Preparation Type: Progress Notes Filed: 09/16/2022 9:29 AM Note Text: Called pt, LM that thyroid levels are good. [facility] Progress note 09-11-2022 Note Date & Type Note Facility 09-11-2022 Note HNO ID: [id number] Author: Lisa Foster MD Service: ? Author Type: Physician Type: Progress Notes Filed: 09/11/2022 4:06 PM Note Text: F/u hypothyroidism and PTC. Last visit 09/14/21 Current Outpatient Medications Medication Sig Dispense Refill levothyroxine (SYNTHROID) 75 mcg tablet Take 1 tablet by mouth once daily. 90 tablet 3 calcium-vitamin D3-vitamin K (VIACTIV) 650 mg-12.5 mcg-40 mcg chew Take by mouth. magnesium oxide (MAG-OX) 400 mg (241.3 mg magnesium) tablet Take 1 tablet by mouth once daily. acetaminophen(TYLENOL 325 MG TAB) Take two(2) tablets every four(4) to six(6) hours as needed. 0 No current facility-administered medications for this visit. Interval hx: Doing well overall. Exc 1/2 hour in am. Taking L-T4 75 mcg one tab daily. Takes appropriately in am, except again takes supplements within 2-3 hrs. Not on Biotin. Denies flutters in chest. No significant weight changes. No neck lumps. She Saw Dr Matthew jiang in February 2020 Ultrasound examination was performed in the office and was good. Rec to RTC as needed. PE: 09/11/22 1535 BP: 132/84 Pulse: 61 Weight: 54.9 kg (121 lb) Height: 165.1 cm (5' 5 ) GA NAD. No palpable mass in the thyroid bed and and no cervical adenopathy. Previous laboratory results: 07/25/22 TSH 0.639, Tg not done. Component Latest Ref Rng AND Units 11/19/2021 TSH 0.270 - 4.200 mIU/L 0.445 Thyroglobulin Ab <14.4 IU/mL 2.4 Thyroglobulin 1.6 - 59.9 ng/mL <0.2 (L) Component Latest Ref Rng AND Units 02/07/2020 08/09/2020 10/16/2020 Thyroglobulin 1.6 - 59.9 ng/mL <0.2 (L) <0.2 (L) TG Antibody Screen <14.4 IU/mL 2.1 2.3 TSH 0.270 - 4.200 uU/mL 0.162 (L) 0.084 (L) 0.288 Component Latest Ref Rng AND Units 02/03/2019 Thyroglobulin 1.6 - 59.9 ng/mL <0.2 (L) TG Antibody Screen <14.4 IU/mL 2.4 TSH 0.400 - 5.500 uU/mL 0.330 (L) Component Latest Ref Rng AND Units 12/04/2016 12/04/2016 01/14/2017 08/14/2017 02/16/2018 07/21/2018 12:00 AM 12:00 AM Thyroglobulin 1.6 - 59.9 ng/mL 217.0 (H) <0.2 (L) <0.2 (L) <0.2 (L) TG Antibody Screen <14.4 IU/mL 94.2 (H) 5.4 3.2 2.7 TSH 0.400 - 5.500 uU/mL 3.100 3.100 22.260 (H) 0.428 0.780 Thyroglobulin Ab <14.4 IU/mL 94.2 (H) 3.2 Free T4 0.9 - 1.7 ng/dL 1.1 1.7 1.6 [facility] 08/11/17 TSH 34 - no Tg 10/10/2017 : [facility]: TSH 0.049 Tg Ab by Genaro 1.3( 0-0.9) Tg by LCM<0.2 [facility] TSH 0.052 Tg Abd Genaro <1.0 Impression and recommendations: 72 yo female patient with PTC. Euthyroid with low Tg level. Total thyroidectomy on 01/24/17. Dr Matthew dalton. 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 Chronic lymphocytic thyroiditis. Four lymph nodes, negative for neoplasm (0/4). No evidence of vascular invasion, lymphatic invasion or miquel-thyroidal soft tissue invasion. Carcinoma does not involve the margins of excision (closest < 0.1 cm). The pathologic stage is pT1b pN0 pMX, based on the evaluation of four uninvolved miquel-thyroidal lymph nodes (0/4). No postop I 131. TgAb positive prior to surgery in January 2017 but have normalized since , which is a good sign Neck US unremarkable in 08/2017, 02/2018, 02/2019 and 02/[address] Castro rec RTC as needed for neck US. Post surgical hypothyroidism. Clinically euthyroid on Synthroid 75 mcg daily. TSH at goal, with undetectable Tg, but needs updated labs. Rec: Get TSH/Tg on way out. Continue same dose of Levothyroxine pending results.. Follow up 12 months. Call earlier for questions or concerns. Some elements copied from my note 09/14/21 which have been updated where appropriate, and all reflect current medical decision making from date of this visit. I spent a total of 20 minutes on the date of the service which included preparing to see the patient, [id number] patient care, completing clinical documentation, obtaining and/or reviewing separately obtained history, performing a medically appropriate examination, counseling and educating the patient, ordering medications, tests, or procedures and care coordination. Lisa Foster MD [facility] History of Present illness Narrative 09-11-2022 Lisa Foster MD - 09/11/2022 3:32 PM EST Note Date & Type Note Facility 09-11-2022 History of Presen t illness Narrative F/u hypothyroidism and PTC. Last visit 09/14/21 Current Outpatient Medications Medication Sig Dispense Refill levothyroxine (SYNTHROID) 75 mcg tablet Take 1 tablet by mouth once daily. 90 tablet 3 calcium-vitamin D3-vitamin K (VIACTIV) 650 mg-12.5 mcg-40 mcg chew Take by mouth. magnesium oxide (MAG-OX) 400 mg (241.3 mg magnesium) tablet Take 1 tablet by mouth once daily. acetaminophen(TYLENOL 325 MG TAB) Take two(2) tablets every four(4) to six(6) hours as needed. 0 No current facility-administered medications for this visit. Interval hx: Doing well overall. Exc 1/2 hour in am. Taking L-T4 75 mcg one tab daily. Takes appropriately in am, except again takes supplements within 2-3 hrs. Not on Biotin. Denies flutters in chest. No significant weight changes. No neck lumps. She Saw Dr Castro last in February 2020 Ultrasound examination was performed in the office and was good. Rec to RTC as needed. PE: 09/11/22 1535 BP: 132/84 Pulse: 61 Weight: 54.9 kg (121 lb) Height: 165.1 cm (5' 5 ) GA NAD. No palpable mass in the thyroid bed and and no cervical adenopathy. Previous laboratory results: 07/25/22 TSH 0.639, Tg not done. Component Latest Ref Rng & Units 11/19/2021 TSH 0.270 - 4.200 mIU/L 0.445 Thyroglobulin Ab <14.4 IU/mL 2.4 Thyroglobulin 1.6 - 59.9 ng/mL <0.2 (L) Component Latest Ref Rng & Units 02/07/2020 08/09/2020 10/16/2020 Thyroglobulin 1.6 - 59.9 ng/mL <0.2 (L) <0.2 (L) TG Antibody Screen <14.4 IU/mL 2.1 2.3 TSH 0.270 - 4.200 uU/mL 0.162 (L) 0.084 (L) 0.288 Component Latest Ref Rng & Units 02/03/2019 Thyroglobulin 1.6 - 59.9 ng/mL <0.2 (L) TG Antibody Screen <14.4 IU/mL 2.4 TSH 0.400 - 5.500 uU/mL 0.330 (L) Component Latest Ref Rng & Units 12/04/2016 12/04/2016 01/14/2017 08/14/2017 02/16/2018 07/21/2018 12:00 AM 12:00 AM Thyroglobulin 1.6 - 59.9 ng/mL 217.0 (H) <0.2 (L) <0.2 (L) <0.2 (L) TG Antibody Screen <14.4 IU/mL 94.2 (H) 5.4 3.2 2.7 TSH 0.400 - 5.500 uU/mL 3.100 3.100 22.260 (H) 0.428 0.780 Thyroglobulin Ab <14.4 IU/mL 94.2 (H) 3.2 Free T4 0.9 - 1.7 ng/dL 1.1 1.7 1.6 [facility] 08/11/17 TSH 34 - no Tg 10/10/2017 : [facility]: TSH 0.049 Tg Ab by Genaro 1.3( 0-0.9) Tg by LCM<0.2 [facility] TSH 0.052 Tg Abd Genaro <1.0 Impression and recommendations: 72 yo female patient with PTC. Euthyroid with low Tg level. Total thyroidectomy on 01/24/17. Dr Castro [facility]. 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 Chronic lymphocytic thyroiditis. Four lymph nodes, negative for neoplasm (0/4). No evidence of vascular invasion, lymphatic invasion or miquel-thyroidal soft tissue invasion. Carcinoma does not involve the margins of excision (closest < 0.1 cm). The pathologic stage is pT1b pN0 pMX, based on the evaluation of four uninvolved miquel-thyroidal lymph nodes (0/4). No postop I 131. TgAb positive prior to surgery in January 2017 but have normalized since , which is a good sign Neck US unremarkable in 08/2017, 02/2018, 02/2019 and 02/[address] Castro rec RTC as needed for neck US. Post surgical hypothyroidism. Clinically euthyroid on Synthroid 75 mcg daily. TSH at goal, with undetectable Tg, but needs updated labs. Rec: Get TSH/Tg on way out. Continue same dose of Levothyroxine pending results.. Follow up 12 months. Call earlier for questions or concerns. Some elements copied from my note 09/14/21 which have been updated where appropriate, and all reflect current medical decision making from date of this visit. I spent a total of 20 minutes on the date of the service which included preparing to see the patient, [id number] patient care, completing clinical documentation, obtaining and/or reviewing separately obtained history, performing a medically appropriate examination, counseling and educating the patient, ordering medications, tests, or procedures and care coordination. Lisa Foster MD documented in this encounter [facility] Evaluation + Plan note Note Date & Type Note Facility Evaluation + Plan note No data available for this section [facility] Evaluation note Note Date & Type Note Facility Evaluation note Diagnosis Postsurgical hypothyroidism- Primary Papillary thyroid carcinoma (HCC) Malignant neoplasm of thyroid gland documented in this encounter [facility] Discharge instructions Note Date & Type Note Facility Hospital Discharge instructions No data available for this section [facility] Progress note Note Date & Type Note Facility Progress note No data available for this section [facility] Summary Purpose Family History No Family History Records FoundNo Family History Records FoundNo Family History Records Found Advance Directives No Advanced Directives Records FoundNo Advanced Directives Records FoundNo Advanced Directives Records Found Additional Source Comments INFORMATION SOURCE (unrecogn ized section and content) DATE CREATED AUTHOR 08/10/2022 [facility] DATE CREATED AUTHOR AUTHOR'S ORGANIZ ATION 09/16/2022 [facility] DATE CREATED AUTHOR AUTHOR'S ORGANIZ ATION 03/05/2023 [facility] Source Comments (unrecognize d section and content) In the event this informatio n is protected by the Federal Confidentiality of Alcohol and Drug Abuse Patient Records regulations: The Federal rules restrict any use of the information to criminally investigate or prosecute any alcohol or drug abuse patient.[facility] Reason for Visit (unrecogniz ed section and content) Reason Comments Thyroid Problem Care Teams (unrecognized sec tion and content) Pan Shover Relationship Specialty Start Date End Date Nathaniel Bello II [address] [facility] [address] [place] [address] PCP - General Internal Medicine 01/22/16 FOR RECORDS PERTAINING TO PATIENTS WHO ARE OR HAVE BEEN ENROLLED IN A CHEMICAL DEPENDENCY/SUBSTANCEABUSE PROGRAM, SOME INFORMATION MAY BE OMITTED. This clinical summary was aggregated from multiple sources. Caution should be exercised in using it in the provision of clinical care. This summary normalizes information from multiple sources, and as a consequence, information in this document may materially change the coding, format and clinical context of patient data. In addition, data may be omitted in some cases. CLINICAL DECISIONS SHOULD BE BASED ON THE PRIMARY CLINICAL RECORDS. [employer] [facility]. provides no warranty or guarantee of the accuracy or completeness of information in this document.
[2023-12-16 10:48] LABS: Basophils Absolute Auto 0.1 10^3/uL (0.0-0.1); Basophils Percent Auto 1.2 % (0.2-2.0); Eosinophils Absolute Auto 0.1 10^3/uL (0.0-0.7); Eosinophils Percent Auto 1.7 % (0.9-7.0); Hematocrit 41.1 % (36.0-48.0); Hemoglobin 13.1 g/dL (12.0-16.0); Immature Granulocytes Abs Auto 0.01 10^3/uL (0.00-0.03); Immature Granulocytes Pct Auto 0.2 % (0.0-0.5); Lymphocytes Absolute Auto 1.9 10^3/uL (1.2-3.8); Lymphocytes Percent Auto 28.8 % (20.5-60.0); Mean Corpuscular HGB Conc 31.9 g/dL (29.9-35.2); Mean Corpuscular Hemoglobin 30.2 pg (26.7-34.0); Mean Corpuscular Volume 94.7 fL (81.0-99.0); Mean Platelet Volume 10.2 fL (9.5-13.5); Monocytes Absolute Auto 0.7 10^3/uL (0.3-0.8); Monocytes Percent Auto 10.8 % (1.7-12.0); Neutrophils Absolute Auto 3.8 10^3/uL (1.4-6.5); Neutrophils Percent Auto 57.3 % (43.0-75.0); Platelet Count 273 10^3/uL (150-450); Red Blood Count 4.34 10^6/uL (4.20-5.40); Red Cell Distribution Width 13.9 % (11.0-15.0); White Blood Count 6.6 10^3/uL (4.0-11.0)
[2023-12-16 11:56] LABS: Alanine Aminotransferase 29 U/L (14-59); Albumin Globulin Ratio 0.9; Albumin Level 3.5 g/dL (3.4-5.0); Alkaline Phosphatase 72 U/L (46-116); Anion Gap 11.8; Aspartate Amino Transferase 24 U/L (15-37); BUN Creatinine Ratio 27.6; Bilirubin Total 0.3 mg/dL (0.2-1.0); Calcium 9.1 mg/dL (8.5-10.1); Carbon Dioxide 28.5 mmol/L (21.0-32.0); Chloride 102 mmol/L (98-107); Chol HDL Ratio 4.5; Cholesterol 282 mg/dL (<=200); Estimated GFR (African America >60 (>=60); Estimated GFR (Non-African Ame >60 (>=60); Free T3 2.58 pg/mL (2.18-3.98); Glucose 90 mg/dL (74-106); HDL Cholesterol 63 mg/dL (40-60); Potassium 4.3 mmol/L (3.5-5.1); Sodium 138 mmol/L (136-145); Thyroid Stimulating Hormone 0.766 uIU/mL (0.358-3.740); Total Protein 7.5 g/dL (6.4-8.2); Triglycerides 143 mg/dL (<=150); VLDL CHOLESTEROL 28.6 mg/dL
[2023-12-16 12:40] LABS: Estimated Average Glucose 114 mg/dL; Glycohemoglobin A1C 5.6 % (4.5-6.2)
== END 2023-12-16 10:25 | disposition home or self-care (01) ==
PROVIDERS: PCP Family Medicine; Visit Provider Family Medicine
DX: E03.9 Hypothyroidism, unspecified (principal); E55.9 Vitamin D deficiency, unspecified; E78.49 Other hyperlipidemia; E78.5 Hyperlipidemia, unspecified; R73.09 Other abnormal glucose; D64.9 Anemia, unspecified
CPT/HCPCS: 36415; 80053; 80061; 82306; 83036; 83540; 84436; 84443; 84481; 85025

== ENCOUNTER 2024-06-04 09:46 | Outpatient (OUT) | payer MEDICARE, OTHER, SELFPAY ==
--- OUTSIDE RECORDS SUMMARY | 2024-06-04 10:00 | XMS_ITS | CCD ---
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 Name Role Phone JASON, DR RICH Admitting Unavailable HOY, DR RICH [...] Unavailable ZIEBER, DR JESUS Grant Consulting Unavailable Nathaniel Bello II Primary Care Provider NATHANIEL BELLO II Primary Care Unavailable SERHAL, LISA Referring Unavailable SERLISA BORDEN Attending Unavailable NATHANIEL BELLO II Referring Unavailable NATHANIEL BELLO II Primary Care Unavailable SERHAL, LISA Referring Unavailable NATHANIEL BELLO II Primary Care Unavailable Hilario Arrington Primary Care Physician Jona REYES Attending Unavailable Allergies Allergy Classification Reported Allergen(s) Allergy Type Date of Onset Reaction(s) Facility (3 sources) Aspirin; Translations: [ASPIRIN] Drug Allergy 9 [facility] Repository (2 sources) Aspirin; Translations: [aspirin] Drug Allergy 9 GI Upset, Nausea and vomiting (disorder) [facility] Work Phone: (2 sources) levothyroxine; Translations: [LEVOTHYROXINE] Drug Allergy 3 Other: See Comments [facility] (2 sources) Risedronate; Translations: [RISEDRONATE SODIUM] Drug Allergy 3 Unknown [facility] Medications Current Medications Medication Drug Class(es) Dates [...] Test Name Value Interpretation Reference Range Facility TSH BLDon 09-12-2022 TSH Qn 0.314 m[IU]/L 0.270 - 4.200 mIU/L [facility] Thyroglobulin and Thyrogobul in Ab panelon 09-12-2022 Thyroglobulin [Mass/Vol] Low 1.6 - 59.9 ng/mL [facility] Thyroglobulin Ab Qn 1.1 [IU]/mL <14.4 IU/mL [facility] Thyroglobulin Ab Qn <4.0 IU/mL [facility] Thyroglobulin, Serum Low 1.6 - 5 0.0 ng/mL [facility] CNOVon 09-11-2022 CNOV Office Visit (ENDOCC ) PARTH JOHNSON ([id number]) 1950 F Date Time Provider Department 09/11/22 3:40 PM LISA FOSTER [facility] During your visit today, we recorded the following information about you: Pulse Blood pressure Weight Height 61/minute 132/84 54.9 kg 1.651 m Lisa Fotser MD 09/11/2022 4:06 PM Signed F/u hypothyroidism [...] 0.9 - 1.7 ng/dL 1.1 1.7 1.6 [facility] [place] [facility] 08/11/17 TSH 34 - no Tg 10/10/2017 : [facility]: TSH 0.049 Tg Ab by Genaro 1.3( 0-0.9) Tg by LCM<0.2 [place] TSH 0.052 Tg Abd Genaro <1.0 Impression [...] which included preparing to see the patient, [id number] patient care, completing clinical documentation, obtaining and/or reviewing separately obtained history, performing a medically appropriate examination, counseling and educating the patient, ordering medications, tests, or procedures and care coordination. Lisa Foster MD Referring Provider: NATHANIEL BELLO II [[id number]] Allergies As of Date: 09/11/2022 Noted Allergy Reaction ACTONEL (RISEDRONATE SODIUM) 12/18/2012 16 - Unknown ASPIRIN 11/14/2008 8 - GI Upset LEVOTHYROXINE 12/18/2012 14 - Other: See Comments Comments: dizziness Date Reviewed: 09/11/2022 Reviewed by: Lisa Foster MD - Fully Assessed Reason for Visit: Thyroid Problem [110] Primary Visit Diagnosis:Postsurgica l hypothyroidism [E89.0] Other Visit Diagnosis:Papillary thyroid carcinoma (HCC) [C73] Order(s):TSH BLD [SQTSH] Order #: [id number] FUTURE THYROGL (more content not included)... Normal [facility] TSH SerPl-aCncon 09-11-2022 TSH Qn 0.314 m[IU]/L Normal 0.270-4.200 [facility] Comment on above: Order Comment: Paul rai Type: BLOOD SPECIMEN Ordering Facility: [facility] Address: [address] [place] [address] Performed By: #### 3 016-3 #### [facility] CLIA [id number] [address] [place] [address] OF [place] Thyroglobulin and Thyrogobul in Ab panelon 09-11-2022 Thyroglobulin [Mass/Vol] <0.2 Low 1.6-59.9 [facility] Comment on above: Order Comment: Paul rai Type: BLOOD SPECIMEN Ordering Facility: [facility] Address: [address] [place] [address] Result Comment: The Thyroglobulin test was performed using the Siemens Immulite chemiluminescent immunometric method. Results obtained with different assay methods or kits cannot be used interchangeably. Performed By: #### 5 7780-9 #### [facility] CLIA [id number] [address] [place] [address] [place] Thyroglobulin Ab Qn 1.1 [IU]/mL Normal <14.4 [facility] Comment on above: Order Comment: Paul rai Type: BLOOD SPECIMEN Ordering Facility: [facility] Address: [address] [place] [address] Result Comment: The Thyroglobulin Antibody test was performed using the [employer] Worker chemiluminescent microparticle immunoassay method. Results obtained with different assay methods or kits cannot be used interchangeably. <0.9 The Thyroglobulin Antibody test was performed using the [employer] Unicel DXI paramagnetic particle chemiluminescent immunoassay method. Results obtained with different assay methods or kits cannot be used interchangeably. Performed By: #### 5 7780-9 #### [facility] CLIA [id number] [address] [place] [address] THYROGLOBULIN, SERUM <0.1 Low 1.6-50.0 [facility] Comment on above: Order Comment: Speci men Type: BLOOD SPECIMEN Ordering Facility: [facility] Address: [address] [place] [address] [place] [address] Result Comment: The Thyroglobulin test was performed using the [employer] Unicel DXI paramagnetic particle chemiluminescent immunoassay method. Results obtained with different assay methods or kits cannot be used interchangeably. Performed By: #### 5 7780-9 #### [facility] CLIA [id number] [address] [place] [address] XR DEXA BONE DENSITYon 08-05 XR DEXA [...] JESUS TOBAR Date: 2022-08-05 16:33 Normal [facility] CBC AUTO DIFFon 07-25-2022 BASO # 0.1 103/ul Normal 0.0-0.1 [facility] Comment on above: Performed By: #### C BC #### [facility] [address] [address] [address] Ana Henson Basophils/100 WBC (Bld) 0.9 % Normal 0.2-2.0 [facility] Comment on above: Performed By: #### C BC #### [facility] [address] [address] [address] Ana Henson EO # 0.2 103/ul Normal 0.0-0.7 [facility] Comment on above: Performed By: #### C BC #### [facility] [address] [place] [address] Dr. Ana Henson Eosinophils/100 WBC (Bld) 2.4 % Normal 0.9-7.0 [facility] Comment on above: Performed By: #### C BC #### [facility] [address] [place] [address] Dr. Ana Henson Erythrocyte distribution width (RBC) [Ratio] 14.4 % Normal 11.0-15.0 [facility] Comment on above: Performed By: #### C BC #### [facility] [address] [place] [address] Dr. Ana Henson Hematocrit (Bld) [Volume fraction] 41.6 % Normal 36.0-48.0 [facility] Comment on above: Performed By: #### C BC #### [facility] [address] [place] [address] Dr. Ana Henson Hemoglobin (Bld) [Mass/Vol] 13.6 g/dL Normal 12.0-16.0 [facility] Comment on above: Performed By: #### C BC #### [facility] [address] [place] [address] Dr. Ana Henson IG # 0.02 10e3/ul Normal 0.00-0.03 [facility] Comment on above: Performed By: #### C BC #### [facility] [address] [place] [address] Dr. Ana Henson IG % 0.2 % Normal 0.0-0.5 [facility] Comment on above: Performed By: #### C BC #### [facility] [address] [address] [address] Ana Henson LYMPH # 1.8 103/ul Normal 1.2-3.8 [facility] Comment on above: Performed By: #### C BC #### [facility] [address] [place] [address] Dr. Ana Henson Lymphocytes/100 WBC (Bld) 20.8 % Normal 20.5-60.0 [facility] Comment on above: Performed By: #### C BC #### [facility] [address] [place] [address] Dr. Ana Henosn MANUAL DIFF REQ NO Normal [facility] Comment on above: Performed By: #### C BC #### [facility] [address] [place] [address] Dr. Ana Henson MCH (RBC) [Entitic mass] 29.5 pg Normal 26.7-34.0 [facility] Comment on above: Performed By: #### C BC #### [facility] [address] [place] [address] Dr. Ana Henson MCHC (RBC) [Mass/Vol] 32.7 g/dL Normal 29.9-35.2 [facility] Comment on above: Performed By: #### C BC #### [facility] [address] [place] [address] Dr. Ana Henson MCV (RBC) [Entitic vol] 90.2 fL Normal 81.0-99.0 [facility] Comment on above: Performed By: #### C BC #### [facility] [address] [place] [address] Dr. Ana Henson MONO # 0.9 103/ul Critically high 0.3-0.8 [facility] Comment on above: Performed By: #### C BC #### [facility] [address] [place] [address] Dr. Ana Henson Monocytes/100 WBC (Bld) 10.5 % Normal 1.7-12.0 [facility] Comment on above: Performed By: #### C BC #### [facility] [address] [place] [address] Dr. Ana Henson NEUT # 5.6 103/ul Normal 1.4-6.5 [facility] Comment on above: Performed By: #### C BC #### [facility] [address] [place] [address] Dr. Ana Henson Neutrophils/100 WBC (Bld) 65.2 % Normal 43.0-75.0 [facility] Comment on above: Performed By: #### C BC #### [facility] [address] [place] [address] Dr. Ana eHnson Platelet mean volume (Bld) [Entitic vol] 9.2 fL Critically low 9.5-13.5 [facility] Comment on above: Performed By: #### C BC #### [facility] [address] [place] [address] Dr. Ana Henson PLT 310 103/ul Normal 150-450 [facility] Comment on above: Performed By: #### C BC #### [facility] [address] [place] [address] Dr. Ana Henson RBC 4.61 106/ul Normal 4.20-5.40 [facility] Comment on above: Performed By: #### C BC #### [facility] [address] [place] [address] Dr. Ana Henson WBC 8.6 103/ul Normal 4.0-11.0 [facility] Comment on above: Performed By: #### C BC #### [facility] [address] [place] [address] Dr. Ana Henson FREE THYROXINE INDEX T7on FTI 3.66 Normal 1.30-4.50 [facility] Comment on above: Performed By: #### T SH, LIPID, T7, CMP #### [facility] [address] [place] [address] Dr. Ana Henson T3U 37.0 % Normal 30.0-39.0 [facility] Comment on above: Performed By: #### T SH, LIPID, T7, CMP #### [facility] [address] [address] [address] Ana Henson T4 [Mass/Vol] 9.90 ug/dL Normal 4.80-13.90 [facility] Comment on above: Performed By: #### T SH, LIPID, T7, CMP #### [facility] [address] [address] [address] Ana Henson GLYCOHEMOGLOBIN A1Con 2021 ADA RECOMMENDATION SEE BELOW Normal [facility] Comment on above: Result Comment: ADA RECOMMENDED LIMIT 4.0 - 6.0 ADA THERAPEUTIC TARGET < 7.0 ACTION SUGGESTED > 7.0 Performed By: #### A 1C #### [facility] [address] [place] [address] Dr. Ana Henson Glucose [Mass/Vol] 120 mg/dL Normal [facility] Comment on above: Performed By: #### A 1C #### [facility] [address] [place] [address] Dr. Ana Henson HbA1c (Bld) [Mass fraction] 5.8 % Normal 4.5-6.2 [facility] Comment on above: Performed By: #### A 1C #### [facility] [address] [place] [address] Dr. Ana Henson IRONon 07-25-2022 Iron [Mass/Vol] 75.0 ug/dL Normal 50.0-170.0 [facility] Comment on above: Performed By: #### V ITAD, IRON #### [facility] [address] [place] [address] Dr. Ana Henson LIPID PROFILEon 07-25-2022 CHOL-HDL RATIO NORM SEE BELOW Normal [facility] Comment on above: Result Comment: 3.3 - 4.4 LOW RISK 4.4 - 7.1 AVERAGE RISK 7.1 - 11.0 MODERATE RISK >11.0 HIGH RISK Performed By: #### T SH, LIPID, T7, CMP #### [facility] [address] [place] [address] Dr. Ana Henson Cholesterol [Mass/Vol] 244 mg/dL Critically high <=200 [facility] Comment on above: Performed By: #### T SH, LIPID, T7, CMP #### [facility] [address] [address] [address] Ana Henson Cholesterol in HDL [Mass/Vol] 59 mg/dL Normal 40-60 [facility] Comment on above: Performed By: #### T SH, LIPID, T7, CMP #### [facility] [address] [address] [address] Ana Henson Cholesterol in LDL [Mass/Vol] 157.6 mg/dL Normal [facility] Comment on above: Performed By: #### T SH, LIPID, T7, CMP #### [facility] [address] [address] [address] Ana Henson Cholesterol.total/Ch olesterol in HDL [Mass ratio] 4.1 {ratio} Normal [facility] Comment on above: Performed By: #### T SH, LIPID, T7, CMP #### [facility] [address] [address] [address] Ana Henson HDL NORMAL > or = 60 mg/dl - LO W CARDIOVASCULAR RISK <40 mg/dl - HIGH CARDIOVASCULAR RISK Normal [facility] Comment on above: Performed By: #### T SH, LIPID, T7, CMP #### [facility] [address] [address] [address] Ana Henson LDL CALC NORMAL SEE BELOW Normal [facility] Comment on above: Result Comment: <100 mg/dl OPTIMAL 100 - 129 mg/dl NEAR OR ABOVE OPTIMAL 130 - 159 mg/dl BORDERLINE HIGH 160 - 189 mg/dl HIGH >190 mg/dl VERY HIGH Performed By: #### T SH, LIPID, T7, CMP #### [facility] [address] [address] [address] Ana Henson Triglyceride [Mass/Vol] 137 mg/dL Normal <=150 [facility] Comment on above: Performed By: #### T SH, LIPID, T7, CMP #### [facility] [address] [address] [address] Ana Henson VLDL CALC 27.4 mg/dL Normal [facility] Comment on above: Performed By: #### T SH, LIPID, T7, CMP #### [facility] [address] [place] [address] Dr. Ana Henson PROF 14(COMP METB)on 022 Albumin [Mass/Vol] 3.6 g/dL Normal 3.4-5.0 [facility] Comment on above: Performed By: #### T SH, LIPID, T7, CMP #### [facility] [address] [place] [address] Dr. Ana Henson Albumin/Globulin [Mass ratio] 0.9 {ratio} Normal [facility] Comment on above: Performed By: #### T SH, LIPID, T7, CMP #### [facility] [address] [place] [address] Dr. Ana Henson ALP [Catalytic activity/Vol] 66 U/L Normal 46-116 [facility] Comment on above: Performed By: #### T SH, LIPID, T7, CMP #### [facility] [address] [place] [address] Dr. Ana Henson ALT [Catalytic activity/Vol] 32 U/L Normal 14-59 [facility] Comment on above: Performed By: #### T SH, LIPID, T7, CMP #### [facility] [address] [place] [address] Dr. Ana Henson Anion gap [Moles/Vol] 9.0 mmol/L Normal [facility] Comment on above: Performed By: #### T SH, LIPID, T7, CMP #### [facility] [address] [place] [address] Dr. Ana Henson AST [Catalytic activity/Vol] 28 U/L Normal 15-37 [facility] Comment on above: Performed By: #### T SH, LIPID, T7, CMP #### [facility] [address] [place] [address] Dr. Ana Henson Bilirubin [Mass/Vol] 0.3 mg/dL Normal 0.2-1.0 [facility] Comment on above: Performed By: #### T SH, LIPID, T7, CMP #### [facility] [address] [place] [address] Dr. Ana Henson Calcium [Mass/Vol] 9.0 mg/dL Normal 8.5-10.[address] [facility] Comment on above: Performed By: #### T SH, LIPID, T7, CMP #### [facility] [address] [address] [address] Ana Henson Chloride [Moles/Vol] 103 mmol/L Normal 98-107 [facility] Comment on above: Performed By: #### T SH, LIPID, T7, CMP #### [facility] [address] [place] [address] Dr. Ana Henson CO2 [Moles/Vol] 27.8 mmol/L Normal 21.0-32.0 [facility] Comment on above: Performed By: #### T SH, LIPID, T7, CMP #### [facility] [address] [place] [address] Dr. Ana Henson Creatinine [Mass/Vol] 0.99 mg/dL Normal 0.55-1.02 [facility] Comment on above: Performed By: #### T SH, LIPID, T7, CMP #### [facility] [address] [place] [address] Dr. Ana Henson EGFR-AF NORWEGIAN >60 Normal >=60 [facility] Comment on above: Performed By: #### T SH, LIPID, T7, CMP #### [facility] [address] [place] [address] Dr. Ana Henson EGFR-NON AF NORWEGIAN 55 mL/min/1.73m2 Critically low >=60 [facility] Comment on above: Performed By: #### T SH, LIPID, T7, CMP #### [facility] [address] [address] [address] Ana Henson Globulin (S) [Mass/Vol] 4.0 g/dL Normal [facility] Comment on above: Performed By: #### T SH, LIPID, T7, CMP #### [facility] [address] [place] [address] Dr. Ana Henson Glucose [Mass/Vol] 92 mg/dL Normal 74-[address] [facility] Comment on above: Performed By: #### T SH, LIPID, T7, CMP #### [facility] [address] [address] [address] Ana Henson Potassium [Moles/Vol] 4.8 mmol/L Normal 3.5-5.1 [facility] Comment on above: Performed By: #### T SH, LIPID, T7, CMP #### [facility] [address] [place] [address] Dr. Ana Henson Protein [Mass/Vol] 7.6 g/dL Normal 6.4-8.2 [facility] Comment on above: Performed By: #### T SH, LIPID, T7, CMP #### [facility] [address] [place] [address] Dr. Ana Henson Sodium [Moles/Vol] 135 mmol/L Critically low 136-145 [facility] Comment on above: Performed By: #### T SH, LIPID, T7, CMP #### [facility] [address] [place] [address] Dr. Ana Henson Urea nitrogen [Mass/Vol] 19.0 mg/dL Critically high 7.0-18.0 [facility] Comment on above: Performed By: #### T SH, LIPID, T7, CMP #### [facility] [address] [place] [address] Dr. Ana Henson Urea nitrogen/Creatinine [Mass ratio] 19.2 mg/mg Normal [facility] Comment on above: Performed By: #### T SH, LIPID, T7, CMP #### [facility] [address] [place] [address] Dr. Ana Henson TSHon 07-25-2022 TSH 0.639 uIU/mL Normal 0.358-3.740 [facility] Comment on above: Performed By: #### T SH, LIPID, T7, CMP #### [facility] [address] [place] [address] Dr. Ana Henson VITAMIN D 25 OHon 07-25-2022 VIT D 25-OH 56.8 ng/mL Normal [facility] Comment on above: Performed By: #### V ITAD, IRON #### [facility] [address] [place], [place] [address] Dr. Ana Henson VIT D RANGES SEE BELOW Normal [facility] Comment on above: Result Comment: <20 ng/mL Vit D deficient 20 - <30 ng/mL Vit D insufficient 30 - 100 ng/mL Vit D sufficient >100 ng/mL Potential Toxicity Performed By: #### V ITAD, IRON #### [facility] [address] [place], [place] [address] Dr. Ana Henson MG MAMM SCREEN 3D REYES CADon 06-26-2022 MG MAMM SCREEN 3D REYES CAD Patient: PARTH JOHNSON Exam Date: 06/26/2022 : 1950 Gender:F Ordering : DR HILARIO ARRINGTON . Admission #: [id number] Family : Order #: [id number] CLICK HERE TO VIEW EXAM RADIOLOGY REPORT [...] Treatments None Family Cancers None LOCATION: [facility] BREAST COMPOSITION: Heterogeneously dense,which may obscure small [...] Tobar M.D. 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] 12/31/2016 Papillary thyroid carcinoma (HCC) [C73] 02/17/2018 Postsurgical hypothyroidism [E89.0] 09/14/2021 Encounter Status:Closed by CM SCHROEDER on 11/21/21 Normal [facility] THYROGLOBULIN ABon Thyroglobulin Ab Qn 2.4 [IU]/mL Normal <14.4 [facility] Comment on above: Order Comment: Speci men Type: BLOOD SPECIMEN Ordering Facility: [facility] Address: [address] [place] [address] Performed By: #### Wilder LEVY, 93813-8 #### [facility] CLIA [id number] [address] [place] [address] [place] TSH SerPl-aCncon 11-19-2021 TSH Qn 0.445 m[IU]/L Normal 0.270-4.200 [facility] Comment on above: Order Comment: Derreki men Type: BLOOD SPECIMEN Ordering Facility: [facility] Address: [address] [place] [address] Performed By: #### 3 016-3 #### [facility] CLIA [id number] [address] [place] [address] [place] Thyroglobulin and Thyrogobul in Ab panelon 11-19-2021 Thyroglobulin [Mass/Vol] <0.2 Low 1.6-59.9 [facility] Comment on above: Order Comment: Speci men Type: BLOOD SPECIMEN Ordering Facility: [facility] Address: [address] [place] [address] Result Comment: The Siemens Immulite 2000 is used. Results with different assay methods or kits cannot be used interchangeably. 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.1] 12/31/2016 Papillary thyroid carcinoma (HCC) [C73] 02/17/2018 Postsurgical hypothyroidism [E89.0] 09/14/2021 Encounter Status:Closed by ED BERMAN on 09/18/21 Normal [facility] Vital Signs Date Time Vital Sign Value Performing Clinician Josei favio 09-11-2022 15:35-0500 Body height 165.1 cm Lisa Foster MD Work Phone: [facility] 09-11-2022 15:35-0500 Body weight 54.88 kg Lisa Foster MD Work Phone: [facility] 09-11-2022 15:35-0500 Diastolic blood pressure 84 mm[Hg] Lisa Foster MD Work Phone: [facility] 09-11-2022 15:35-0500 Heart rate 61 /min Lisa Foster MD Work Phone: [facility] 09-11-2022 15:35-0500 Systolic blood pressure 132 mm[Hg] Lisa Foster MD Work Phone: [facility] Encounters Encounter Date Encounter Type Care Provider Facility Start: 06-08-2024 ambulatory Jona REYES Facility : [facility] Start: 03-04-2023 End: 03-04-2023 Patient encounter procedure Jona REYES General Surgery [facility] Start: 09-11-2022 End: 09-11-2022 ambulatory LISA FOSTER Facility:[facility] Start: 09-11-2022 End: 09-11-2022 Patient encounter procedure Lisa Foster MD Work Phone: Endocrinology Comment on above: Postsurgical hypothy roidism (Primary Dx); Papillary thyroid carcinoma (HCC) Start: 08-05-2022 End: 08-06-[address] HILARIO ARRINGTON Facility:[facility] Start: 07-25-2022 End: 07-26-[address] HILARIO ARRINGTON Facility:[facility] Start: 06-26-2022 End: 06-27-[address] HILARIO ARRINGTON Facility:[facility] Start: 11-19-2021 End: 11-19-2021 ambulatory NATHANIEL BELLO II Facility:[facility] Procedures Date Procedure Procedure Detail Performing Clinician Start: 02-19-2023 Colonoscopy Jona MULTANI Start: 11-10-2017 Colonoscopy Jona MULTANI Start: 12-18-2009 Mammography Lisa ramos MD Work Phone: Start: 12-18-2006 Colonoscopy Lisa ramos MD Work Phone: Start: 09-08-2006 Colonoscopy Jona STEVE MULTANI section Jona KELSIE Ramos Hysterectomy Jona AMY Thyroidectomy Jona AMY Plan of Treatment Date Care Activity Detail Author Start: 09-08-2022 ADVANCE DIRECTIVE DISCUSSION ADVANCE DIRECTIVE DISCUSSION [facility] Start: 09-08-2022 DEPRESSION ASSESSMENT DEPRESSION ASS ESSMENT [facility] Start: 01-15-2020 DIABETES SCREEN DIABETES SCREEN [facility] Start: 2017 BONE DENSITY BONE DENSITY [facility] Start: 12-18-2010 Mammography MAMMOGRAM [facility] Start: 12-19-2007 Colonoscopy COLONOSCOPY [facility] Start: 12-19-2007 COLORECTAL CANCER SCREENING COLORECTAL CANCER SCREENING [facility] Start: 1997 COLOGUARD (FIT-DNA) COLOGUARD (FIT-D NA) [facility] Start: [address] COLONOGRAPHY [facility] Start: 1997 FECAL OCCULT BLOOD FECAL OCCULT BLOO D [facility] Start: 1997 LIPID SCREEN LIPID SCREEN [facility] Start: 1997 SIGMOIDOSCOPY SIGMOIDOSCOPY [facility] Start: 1971 Urine microalbumin profile DTAP,TDAP ,TD (1 - Tdap) [facility] Start: 1970 ANNUAL 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 DISEASE VISIT ANNUAL PCP TEAM CHRONIC DISEASE VISIT [facility] Start: 1970 HEPATITIS C SCREENING HEPATITIS C [facility] Immunizations Immunization Date Immunization Notes Care Provider Fa cility 06-27-2022 influenza virus vacc ine, unspecified formulation Jona REYES [facility] [place] 06-27-2022 SARS-CoV-2 (COVID-19 ) [id number] Jona REYES [facility] [place] 03-23-2022 SARS-CoV-2 mRNA (mtkytsrrheg-vcom-hffowj e) vaccine Jona REYES [facility] 06-22-2021 SARS-CoV-2 (COVID-19 ) mRNA BNT-162b2 vax Jona NILL [facility] Comment on above: Result Comment: 2022: [id number] 11-28-2020 SARS-CoV-2 (COVID-19 ) mRNA BNT-162b2 vax Jona NILL [facility] 11-06-2020 SARS-CoV-2 (COVID-19 ) mRNA BNT-162b2 vax Jona NILL [facility] 05-31-2019 seasonal influenza, intradermal, preservative free Lisa Foster MD Work Phone: [facility] 03-26-2019 zoster vaccine recombinant Lisa Foster MD Work Phone: [facility] 10-03-2018 zoster vaccine recombinant Lisa Foster MD Work Phone: [facility] 07-02-2018 influenza, high dose seasonal, preservative-free Lisa Foster MD Work Phone: [facility] 06-30-2018 Seasonal trivalent influenza vaccine, adjuvanted, preservative free Lisa Foster MD Work Phone: [facility] 10-29-2017 pneumococcal polysaccharide vaccine, 23 valent Lisa Foster MD Work Phone: [facility] 08-28-2017 pneumococcal conjuga te vaccine, 13 valent Lisa Foster MD Work Phone: [facility] 06-08-2017 influenza, injectabl e, quadrivalent, contains preservative Lisa Foster MD Work Phone: [facility] 08-12-2016 influenza, injectabl e, quadrivalent, contains preservative Lisa Foster MD Work Phone: [facility] 05-15-2015 seasonal influenza, intradermal, preservative free Lisa Foster MD Work Phone: [facility] 11-09-2014 zoster vaccine, live Lisa charles MD Work Phone: [facility] 02-08-2014 zoster vaccine, live Lisa charles MD Work Phone: [facility] 06-08-2013 influenza virus vacc ine, unspecified formulation Lisa Foster MD Work Phone: [facility] Payers Date Payer Category Payer Unknown [employer] [facility] MEDICARE SUPPLEMENT [id number] 2017-Present [phone] [address] [place] [address] Indemnity [id number] 2017 Medicare MEDICARE MEDICAR E A AND B [id number] 2017-Present [phone] [address] [address] [place] [address] Medicare 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 Author Type: Procedural Nurse Type: Progress Notes Filed: 09/16/2022 9:29 AM Note Text: Called pt, LM that thyroid levels are good. [facility] Progress note 09-11-2022 Note Date & Type Note Facility 09-11-2022 Note HNO ID: [id number] Author: Lisa Foster MD Service: ? Author [...] 0.9 - 1.7 ng/dL 1.1 1.7 1.6 [facility] 08/11/17 TSH 34 - no Tg 10/10/2017 : [facility]: TSH 0.049 Tg Ab by Genaro 1.3( 0-0.9) Tg by LCM<0.2 [place] TSH 0.052 Tg Abd Genaro <1.0 Impression [...] which included preparing to see the patient, qwlv-qd-pobu patient care, completing clinical documentation, obtaining and/or reviewing separately obtained history, performing a medically appropriate examination, counseling and educating the patient, ordering medications, tests, or procedures and care coordination. Lisa Foster MD [facility] History of Present illness Narrative 09-11-2022 Lisa [...] 0.9 - 1.7 ng/dL 1.1 1.7 1.6 [facility] 08/11/17 TSH 34 - no Tg 10/10/2017 : [facility]: TSH 0.049 Tg Ab by Genaro 1.3( 0-0.9) Tg by LCM<0.2 [place] TSH 0.052 Tg Abd Genaro <1.0 Impression and recommendations: 72 yo female patient with PTC. Euthyroid with low Tg level. Total thyroidectomy on 01/24/17. Dr Castro sha. Final pathology revealed PTC 1.6 cm, infiltrating [...] which included preparing to see the patient, rlxb-qu-bobq patient care, completing clinical documentation, obtaining and/or reviewing separately obtained history, performing a medically appropriate examination, counseling and educating the patient, ordering medications, tests, or procedures and care coordination. Lisa Foster MD documented in this encounter [facility] Evaluation + Plan note Note Date & Type Note Facility Evaluation + Plan note No data available for this section [facility] [place] Evaluation note Note Date & Type Note Facility Evaluation note Diagnosis Postsurgical hypothyroidism- Primary Papillary thyroid carcinoma (HCC) Malignant neoplasm of thyroid gland documented in this encounter [facility] Discharge instructions Note Date & Type Note Facility Hospital Discharge instructions No data available for this section [facility] [place] Progress note Note Date & Type Note Facility Progress note No data available for this section [facility] [place] Summary Purpose Family History No Family History Records FoundNo Family History Records FoundNo Family History Records Found Advance Directives No Advanced Directives Records FoundNo Advanced Directives Records FoundNo Advanced Directives Records Found Additional Source Comments INFORMATION SOURCE (unrecogn ized section and content) DATE CREATED AUTHOR 08/10/2022 [facility] DATE CREATED AUTHOR AUTHOR'S ORGANIZ ATION 09/16/2022 [facility] DATE CREATED AUTHOR AUTHOR'S ORGANIZ ATION 05/25/2024 [facility] Source Comments (unrecognize d section and content) In the event this informatio n is protected by the Federal Confidentiality of Alcohol and Drug Abuse Patient Records regulations: The Federal rules restrict any use of the information to criminally investigate or prosecute any alcohol or drug abuse patient.[facility] Reason for Visit (unrecogniz ed section and content) Reason Comments Thyroid Problem Care Teams (unrecognized sec tion and content) 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 [facility] provides no warranty or guarantee of the accuracy or completeness of information in this document.
[2024-06-04 10:33] LABS: Alanine Aminotransferase 28 U/L (14-59); Albumin Globulin Ratio 0.9; Albumin Level 3.6 g/dL (3.4-5.0); Alkaline Phosphatase 64 U/L (46-116); Anion Gap 9.3; Aspartate Amino Transferase 26 U/L (15-37); BUN Creatinine Ratio 12.9; Bilirubin Total 0.4 mg/dL (0.2-1.0); Calcium 9.3 mg/dL (8.5-10.1); Carbon Dioxide 30.8 mmol/L (21.0-32.0); Chloride 102 mmol/L (98-107); Chol HDL Ratio 3.7; Cholesterol 270 mg/dL (<=200); Estimated GFR (African America 56 (>=60); Estimated GFR (Non-African Ame 46 (>=60); Globulin 3.8 g/dL; Glucose 95 mg/dL (74-106); HDL Cholesterol 73 mg/dL (40-60); Potassium 4.1 mmol/L (3.5-5.1); Sodium 138 mmol/L (136-145); Total Protein 7.4 g/dL (6.4-8.2); Triglycerides 121 mg/dL (<=150); VLDL CHOLESTEROL 24.2 mg/dL
--- NOTE | 2024-06-04 13:53 | MM_ITS ---
Patient Name: PARTH JOHNSON MR#: [id number] : 1950 Exam Date: 06/04/2024 Ordering Doctor: DR Joel Arrington . RADIOLOGY REPORT PROCEDURE: MM TOMOSYNTHESIS DIAGNOSTIC BI, 06/04/2024, 13:53 US BREAST LT LIMITED, 06/04/2024, 14:21 COMPARISON: MM TOMOSYNTHESIS SCREENING BI, 06/27/2023. MG MAMM SCREEN 3D REYES CAD, 06/26/2022. MG MAMM SCREEN 3D REYES CAD, 06/25/2021. MG MAMM REYES SCRN W CAD DIG, 02/03/2013. INDICATIONS: Breast Mass Calculator Name NCI Breast Cancer Risk Assessment Tool 5 Year Breast Cancer Risk 2.60% Lifetime Breast Cancer Risk 7.00% Personal Breast Cancer No Personal Ovarian Cancer No Treatments None Family Cancers None LOCATION: [facility] BREAST COMPOSITION: The breasts are heterogeneously dense,which may obscure small masses. FINDINGS: DIAGNOSTIC CATEGORY 2--BENIGN FINDING: RIGHT BREAST: No significant suspicious finding. No significant change has occurred. LEFT BREAST: Skin surface marker localizes patient's palpable lump to the posterior lower-inner quadrant. No significant suspicious finding or appreciable change on mammography. Ultrasound evaluation demonstrates normal appearing fibroglandular tissue. Annual screening recommended. RECOMMENDATIONS: ROUTINE MAMMOGRAM AND CLINICAL EVALUATION IN 12 MONTHS. PLEASE NOTE: A NORMAL MAMMOGRAM DOES NOT EXCLUDE THE POSSIBILITY OF BREAST CANCER. A CLINICALLY SUSPICIOUS PALPABLE LUMP SHOULD BE BIOPSIED. Dictated by: Jesus Tobar M.D. on 06/04/2024 at 15:09 Approved by: Jesus Tobar M.D. on 06/04/2024 at 15:41
--- NOTE | 2024-06-04 14:04 | US_ITS ---
Patient Name: PARTH JOHNSON MR#: [id number] : 1950 Exam Date: 06/04/2024 Ordering Doctor: DR Joel Arrington . RADIOLOGY REPORT PROCEDURE: MM TOMOSYNTHESIS DIAGNOSTIC BI, 06/04/2024, 13:53 US BREAST LT LIMITED, 06/04/2024, 14:21 COMPARISON: MM TOMOSYNTHESIS SCREENING BI, 06/27/2023. MG MAMM SCREEN 3D REYES CAD, 06/26/2022. MG MAMM SCREEN 3D REYES CAD, 06/25/2021. MG MAMM REYES SCRN W CAD DIG, 02/03/2013. INDICATIONS: Breast Mass Calculator Name NCI Breast Cancer Risk Assessment Tool 5 Year Breast Cancer Risk 2.60% Lifetime Breast Cancer Risk 7.00% Personal Breast Cancer No Personal Ovarian Cancer No Treatments None Family Cancers None LOCATION: [facility] BREAST COMPOSITION: The breasts are heterogeneously dense,which may obscure small masses. FINDINGS: DIAGNOSTIC CATEGORY 2--BENIGN FINDING: RIGHT BREAST: No significant suspicious finding. No significant change has occurred. LEFT BREAST: Skin surface marker localizes patient's palpable lump to the posterior lower-inner quadrant. No significant suspicious finding or appreciable change on mammography. Ultrasound evaluation demonstrates normal appearing fibroglandular tissue. Annual screening recommended. RECOMMENDATIONS: ROUTINE MAMMOGRAM AND CLINICAL EVALUATION IN 12 MONTHS. PLEASE NOTE: A NORMAL MAMMOGRAM DOES NOT EXCLUDE THE POSSIBILITY OF BREAST CANCER. A CLINICALLY SUSPICIOUS PALPABLE LUMP SHOULD BE BIOPSIED. Dictated by: Jesus Tobar M.D. on 06/04/2024 at 15:09 Approved by: Jesus Tobar M.D. on 06/04/2024 at 15:41
== END 2024-06-04 09:47 | disposition home or self-care (01) ==
LOC: MAMMO 09:48
PROVIDERS: PCP Family Medicine; Visit Provider Family Medicine
DX: N63.24 Unspecified lump in the left breast, lower inner quadrant (principal); I10 Essential (primary) hypertension; E78.5 Hyperlipidemia, unspecified
CPT/HCPCS: 36415; 76642; 77066; 80053; 80061; G0279

== ENCOUNTER 2025-06-09 08:44 | Outpatient (OUT) | payer MEDICARE, OTHER, SELFPAY ==
--- OUTSIDE RECORDS SUMMARY | 2024-07-27 15:34 | XMS_ITS ---
Author Name Auto Generated Organization [facility] Care Team Providers Care Graphics Artist Name Role Phone Jona BANG Admitting Unavailable Jona BANG Attending Unavailable Jona BANG Referring Unavailable Jona BANG Attending Unavailable PROBLEMS No Problem Records Found PROCEDURES No Procedure Records Found RESULTS GENERAL SURGERY OFFICE/CLINI C NOTE Observed: 07/27/2024 9:03 PM Status: F Source: [facility] General Surgery Office/Clini c Note Chief Complaint post operative follow up HPI Staff 18 day post operative follow up post colonoscopy with ascending polypectomy. History of Present Illness f/u surveillance colonoscopy with removal of recurrent ascending colon tubular adenoma; no dysplasia; also severe sigmoid diverticulosis; denies abd pain or rectal bleeding. Review of Systems PHQ Score Initial Depression Screen Score: 0 SCORE ROS - Provider Constitutional: no fever, no sweats, no weight loss. Eyes: no glasses, no blurred vision, no visual loss. [...] been reviewed and are negative or noncontributory. Assessment/Plan 1. Tubular adenoma of colon (D12.2: Benign neoplasm of ascending colon) recurrent; recommend surveillance colonoscopy in [address] Avitia, may require injection technique; call sooner if problems/questions. Follow-up No qualifying data available Problem List/Past Medical History Ongoing Anorectal skin tags Eczema Hyperlipidemia Hypothyroidism Lumbar radiculopathy Osteopenia Personal history of colonic polyps Serrated adenoma of colon Tubular adenoma of colon Vitamin D deficiency Historical No qualifying data Procedure/Surgical History Colonoscopy (07/09/2024), Colonoscopy (02/19/2023), Colonoscopy (11/10/2017), Colonoscopy (2006), section, Hysterectomy, Thyroidectomy. Medications multivitamin with minerals, Oral, Daily Synthroid 75 mcg Tab, 75 mcg= 1 tab(s), Oral, Daily Vitamin D2 2000 intl units oral capsule, 50 mcg= 1 cap(s), Oral, Daily Allergies aspirin (Nausea and vomiting) Social History Alcohol - Denies Alcohol Use, 01/21/2023 Substance Abuse - Denies Substance Abuse, 01/21/2023 Tobacco Never (less than 100 in lifetime) Tobacco Use:. Never Smokeless Tobacco Use:., 07/27/2024 Family History Family history is negative Immunizations Vaccine Date Status Comments influenza virus vaccine, inactivated 06/27/2022 Recorded SARS-CoV-2 (COVID-19) [id number] 06/27/2022 Recorded SARSCoV2 mRNA(vefmwridb-ibjb-spneei) vac 03/23/2022 Recorded SARS-CoV-2 (COVID-19) mRNA BNT-162b2 vax 06/22/2021 Recorded 2023-01-10: [id number] SARS-CoV-2 (COVID-19) mRNA BNT-162b2 vax 11/28/2020 Recorded SARS-CoV-2 (COVID-19) mRNA BNT-162b2 vax 11/06/2020 Recorded Result Comment: Electronical ly Signed By: AMY DEJESUS, Jona De Jesus\Date and Time Signed: 07/27/24 21:04 EST AMBULATORY VISIT SUMMARY Observed: 07/27 3:09 PM Status: F Source: [facility] Ambulatory Visit Summary PARTH JOHNSON:1950 Visit Date:07/27/2024 Ambulatory Visit Instructions Your Care Team Attending Physician - AMY DEJESUS, Jona Grant Primary Care Physician - Joel Arrington MD This Is Your Medications List ergocalciferol (Vitamin D2 2000 intl units oral capsule) levothyroxine (Synthroid 75 mcg Tab) multivitamin with minerals Procedures Performed Colonoscopy (07/09/2024), Colonoscopy (02/19/2023), Colonoscopy (11/10/2017), Colonoscopy (2006), section, Hysterectomy, Thyroidectomy. Medications What How Much When Instructions Unchanged ergocalciferol (Vitamin D2 2000 intl units oral capsule) 1 Capsules By Mouth Every day Unchanged levothyroxine (Synthroid 75 mcg Tab) 1 Tablets By Mouth Every day Unchanged multivitamin with minerals By Mouth Every day Oral Allergies aspirin (Nausea and vomiting) Problems Ongoing - Any problem that you are currently receiving treatment for. Anorectal skin tags Eczema Hyperlipidemia Hypothyroidism Lumbar radiculopathy Osteopenia Personal history of colonic polyps Serrated adenoma of colon Tubular adenoma of colon Vitamin D deficiency Patient Survey You may receive a survey via text or e-mail asking about your office visit. Please share your experience with us by completing your survey. We appreciate your feedback and thank you for choosing us for your care. REMINDERS Observed: 07/27/2024 3:09 PM Status: F Source: [facility] Reminders From: Maia Cisneros LPN To: G[facility] - Clinical; Sent: 07/27/2024 15:09:03 EST Show up: 06/08/2027 07:00:00 EDT Subject: colonoscopy recall Due Date/Time: 07/09/2027 07:00:00 EDT Reminder/Recall Patient due for colonoscopy 07/09/2027 due to history of recurrent ascending tubular adenoma. (schedule with gastroenterology as may need lift technique) PROGRESS NOTE-PHYSICIAN Observed: 2023 3:06 PM Status: F Source: [facility] Progress Note-Physician Patient: PARTH JOHNSON Age: 74 years Sex: Female : 1950 Associated Diagnoses: None Author: Amandeep Bauman MD Postoperative Information Postoperative disposition: Postoperative disposition: To PACU. Optimetrix number: Optimetrix number [id number]. Anesthetic utilized: General. Health Status Allergies: Nonallergic Reactions (Selected) Severity Not Documented Aspirin- Nausea and vomiting. Physical Examination Vital Signs 07/09/2024 9:00 EDT Heart Rate Monitored 55 bpm LOW Respiratory Rate Monitored 14 br/min Systolic Blood Pressure 112 mmHg Diastolic Blood Pressure 53 mmHg LOW Mean Arterial Pressure, Cuff 73 mmHg SpO2 99 % 07/09/2024 8:45 EDT Heart Rate Monitored 54 bpm LOW Respiratory Rate Monitored 17 br/min Systolic Blood Pressure 105 mmHg Diastolic Blood Pressure 63 mmHg Mean Arterial Pressure, Cuff 77 mmHg SpO2 99 % 07/09/2024 8:35 EDT Temperature Temporal Artery 36.4 DegC Heart Rate Monitored 52 bpm LOW Respiratory Rate Monitored 15 br/min Systolic Blood Pressure 105 mmHg Diastolic Blood Pressure 43 mmHg LOW Mean Arterial Pressure, Cuff 64 mmHg SpO2 100 % Pain Assessment: Controlled. General: Awake, Appropriate. Respiratory: Adequate air exchange. Cardiovascular: Stable. Neurological Assessment Anesthetic outcome No anesthetic complications noted. Adequate pain relief. Review / Management Condition: Stable. Plan Transfer/Discharge: Transfer/Discharge Discharge when meets criteria ( To home ). Result Comment: Electronical ly Signed By: Amandeep Bauman MD\.br\Date and Time Signed: 07/09/24 15:07 EDT COLONOSCOPY PROCEDURE REPORT Observed: 09/08/2023 11:02 AM Status: F Source: [facility] Colonoscopy Procedure Report Patient: PARTH JOHNSON Age: 74 years Sex: Female : 1950 Associated Diagnoses: None Author: Jona BANG MD Pre-Procedure Procedure Date 07/09/2024 08:15:00 . Procedure Type: Colonoscopy with removal of tumor(s), polyp(s), or other lesion(s) by cold snare technique. Procedure provider Jona Bang M.D.. Referred by Joel Arrington M.D.. Current history and physical Documented on chart. Colorectal neoplasm risk assessment High risk Non-advanced neoplasm. . Informed Consent After discussing the rationale, risks and benefits, and alternatives to this procedure, the patient provided signed consent for the procedure. Pre-procedure diagnosis: Last colonoscopy in 2022. ASA Classification: Class II. . Monitoring: See anesthesia record. . Procedure The procedure was performed in the hospital. See anesthesia record for sedation given during procedure. Rectal exam was performed and was normal. The patient was positioned starting in the left lateral decubitus position. Endoscope type used was a pediatric-size. The endoscope was lubricated then introduced through the anus. The scope was advanced to the cecum verified by photographing the appendiceal orifice, verified by photographing the ileocecal valve. No difficulties encountered during the procedure. The bowel preparation quality was good and was adequate (see polyps greater than or equal to 6 millimeters). The patient tolerated the procedure well. Findings Diverticulosis was identified in the sigmoid colon. The diverticulosis is severe. A single polyp 5 mm in size was noted. The polyp was located in the ascending colon. The polyp(s) is sessile (0-Is). The polyp(s) is characterized as soft consistency. Intervention(s) included polypectomy with cold snare. Intervention was successful. Images Procedure images: anal canal sigmoid diverticulosis [id number] ascending colon polyp ileocecal valve appendiceal orifice . Post-Procedure Complications: none. Estimated blood loss: 1 milliliters. Specimens: sent to pathology. Devices/ implants: none left in place. Impression and Plan Diagnosis: Diverticulosis of sigmoid colon (JDL72-KN K57.30, Discharge, Medical), Colon polyp (NCY78-FY K63.5, Discharge, Medical). Course: Progressing as expected. Recommendations: Repeat colonoscopy:: In 5 years. Follow-up:: Await biopsy results in 3-5 days. Diet:: Regular diet. Medication resumption:: Continue current medications. Return to activities:: After 24 hours. Education and Follow-up: Counseled: Family. Other Comment: Missing Attac hment - attachment storage system not supported [id number] Can be viewed in source system Missing Attachment - attachment storage system not supported [id number] Can be viewed in source systemMissing Attachment - attachment storage system not supported [id number] Can be viewed in source systemMissing Attachment - attachment storage system not supported [id number] Can be viewed in source systemMissing Attachment - attachment storage system not supported [id number] Can be viewed in source systemMissing Attachment - attachment storage system not supported [id number] Can be viewed in source system DISCHARGE INSTRUCTIONS Observed: 024 8:42 AM Status: F Source: [facility] Discharge Instructions PARTH JOHNSON :1950 Visit Date:07/09/2024 Inpatient Discharge Instructions Your Care Team Admitting Physician - Jona BANG MD Referring Physician - Jona BANG MD Reason for Your Visit HX COLON POLYPS Your Diagnosis Colon polyp Diverticulosis of sigmoid colon Tests Performed Pathology Tissue Exam -- Results Pending -- Please visit your patient portal for your results or contact your primary care physician. This Is Your Medications List ergocalciferol (Vitamin D2 2000 intl units oral capsule) levothyroxine (Synthroid 75 mcg Tab) multivitamin with minerals Procedure History Colonoscopy (02/19/2023), Colonoscopy (11/10/2017), Colonoscopy (2006), section, Hysterectomy, Thyroidectomy. What to do next Instructions From Your Doctor Event Name Event Result Discharge Activity Arrange for a responsible adult supervision for 24 hours Discharge Restrictions No driving for 24 hrs, Do not operate machinery or tools, Do not make important decisions for 24 hours, Do not drink alcoholic beverages for 24 hours Discharge Diet(s) Other: high fiber diet Call Your Doctor For Persistent or heavy bleeding, Temperature above 101.5 degrees, Severe pain at the operative site, Persistent vomiting Discharge Instructions Discharge Instructions New Follow Up Appointments after Discharge Follow Up with Jona BANG When: Within 1 to 2 weeks Where: [facility], [address] [address]- Business (1) Medications What How Much When Instructions Next Dose Unchanged ergocalciferol (Vitamin D2 2000 intl units oral capsule) 1 Capsules By Mouth Every day Unchanged levothyroxine (Synthroid 75 mcg Tab) 1 Tablets By Mouth Every day Unchanged multivitamin with minerals By Mouth Every day Oral Test Results No qualifying data available. Allergies aspirin (Nausea and vomiting) Problems Ongoing - Any problem that you are currently receiving treatment for. Anorectal skin tags Eczema Hyperlipidemia Hypothyroidism Lumbar radiculopathy Osteopenia Personal history of colonic polyps Serrated adenoma of colon Tubular adenoma of colon Vitamin D deficiency Education Materials Colonoscopy Care After Surgery Please read the instructions outlined below and refer to this sheet in the next few weeks. These discharge instructions provide you with general information on caring for yourself after you leave the hospital. Your doctor may also give you specific instructions. While your treatment has been planned according to the most current medical practices available, unavoidable complications occasionally occur. If you have any problems or questions after discharge, please call your doctor. ACTIVITY You may resume your regular activity, but move at a slower pace for the next 24 hours. Take frequent rest periods for the next 24 hours. Walking will help get rid of the air and reduce the bloated feeling in your abdomen (belly). No driving for 24 hours (because of the anesthesia (medicine) used during the test). You may shower. Do not sign any important legal documents or operate any machinery for 24 hours (because of the anesthesia used during the test). NUTRITION Drink plenty of fluids. You may resume your normal diet as instructed by your doctor. Begin with a light meal and progress to your normal diet. Heavy or fried foods are harder to digest and may make you feel nauseated (sick to your stomach). Avoid alcoholic beverages for 24 hours or as instructed. MEDICATIONS You may resume your normal medications unless your doctor tells you otherwise. WHAT YOU CAN EXPECT TODAY Some feelings of bloating in the abdomen. Passage of more gas than usual. Spotting of blood in your stool or on the toilet paper. FOLLOW-UP Your doctor will discuss the results of your test with you. SEEK IMMEDIATE MEDICAL ATTENTION IF: There is more than a spotting of blood in your stool. There is abdominal distention (your abdomen is swollen). There is vomiting. You have a temperature over 101.5 F. There is abdominal pain or discomfort that is severe or gets worse throughout the day. Colon Polyps Colon polyps are tissue growths inside the colon, which is part of the large intestine. They are one of the types of polyps that can grow in the body. A polyp may be a round bump or a mushroom-shaped growth. You could have one polyp or more than one. Most colon polyps are noncancerous (benign). However, some colon polyps can become cancerous over time. Finding and removing the polyps early can help prevent this. What are the causes? The exact cause of colon polyps is not known. What increases the risk? The following factors may make you more likely to develop this condition: ??? Having a family history of colorectal cancer or colon polyps. ??? Being older than 45 years of age. ??? Being younger than 45 years of age and having a significant family history of colorectal cancer or colon polyps or a genetic condition that puts you at higher risk of getting colon polyps. ??? Having inflammatory bowel disease, such as ulcerative colitis or Crohn's disease. ??? Having certain conditions passed from parent to child (hereditary conditions), such as: ? Familial adenomatous polyposis (FAP). ? Alexis syndrome. ? Turcot syndrome. ? Peutz???Jeghers syndrome. ? MUTYH-associated polyposis (MAP). ??? Being overweight. ??? Certain lifestyle factors. These include smoking cigarettes, drinking too much alcohol, not getting enough exercise, and eating a diet that is high in fat and red meat and low in fiber. ??? Having had childhood cancer that was treated with radiation of the abdomen. What are the signs or symptoms? Many times, there are no symptoms. If you have symptoms, they may include: ??? Blood coming from the rectum during a bowel movement. ??? Blood in the stool (feces). The blood may be bright red or very dark in color. ??? Pain in the abdomen. ??? A change in bowel habits, such as constipation or diarrhea. How is this diagnosed? This condition is diagnosed with a colonoscopy. This is a procedure in which a lighted, flexible scope is inserted into the opening between the buttocks (anus) and then passed into the colon to examine the area. Polyps are sometimes found when a colonoscopy is done as part of routine cancer screening tests. How is this treated? This condition is treated by removing any polyps that are found. Most polyps can be removed during a colonoscopy. Those polyps will then be tested for cancer. Additional treatment may be needed depending on the results of testing. Follow these instructions at home: Eating and drinking ??? Eat foods that are high in fiber, such as fruits, vegetables, and whole grains. ??? Eat foods that are high in calcium and vitamin D, such as milk, cheese, yogurt, eggs, liver, fish, and broccoli. ??? Limit foods that are high in fat, such as fried foods and desserts. ??? Limit the amount of red meat, precooked or cured meat, or other processed meat that you eat, such as hot dogs, sausages, amado, or meat loaves. ??? Limit sugary drinks. Lifestyle ??? Maintain a healthy weight, or lose weight if recommended by your health care provider. ??? Exercise every day or as told by your health care provider. ??? Do not use any products that contain nicotine or tobacco, such as cigarettes, e-cigarettes, and chewing tobacco. If you need help quitting, ask your health care provider. ??? Do not drink alcohol if: ? Your health care provider tells you not to drink. ? You are , may be , or are planning to become . ??? If you drink alcohol: ? Limit how much you use to: ? 0???1 drink a day for women. ? 0???2 drinks a day for men. ? Know how much alcohol is in your drink. In the [place] one drink equals one 12 oz bottle of beer (355 mL), one 5 oz glass of wine (148 mL), or one 1??? oz glass of hard liquor (44 mL). General instructions ??? Take xset-spj-pqfexac and prescription medicines only as told by your health care provider. ??? Keep all follow-up visits. This is important. This includes having regularly scheduled colonoscopies. Talk to your health care provider about when you need a colonoscopy. Contact a health care provider if: ??? You have new or worsening bleeding during a bowel movement. ??? You have new or increased blood in your stool. ??? You have a change in bowel habits. ??? You lose weight for no known reason. Summary ??? Colon polyps are tissue growths inside the colon, which is part of the large intestine. They are one type of polyp that can grow in the body. ??? Most colon polyps are noncancerous (benign), but some can become cancerous over time. ??? This condition is diagnosed with a colonoscopy. ??? This condition is treated by removing any polyps that are found. Most polyps can be removed during a colonoscopy. This information is not intended to replace advice given to you by your health care provider. Make sure you discuss any questions you have with your health care provider. Document Revised: 12/13/2020 Document Reviewed: 12/13/2020 [employer] Patient Education ??? 2023 [employer] Common Emergency Awareness Tips IS IT A STROKE? Act FAST and Check for these signs: FACE Does the face look uneven? ARM Does one arm drift down? SPEECH Does their speech sound strange? TIME Call at any sign of stroke Heart Attack Signs Chest discomfort: Most heart attacks involve discomfort in the center of the chest and lasts more than a few minutes, or goes away and comes back. It can feel like uncomfortable pressure, squeezing, fullness or pain. Discomfort in upper body: Symptoms can include pain or discomfort in one or both arms, back, neck, jaw or stomach. Shortness of breath: With or without discomfort. Other signs: Breaking out in a cold sweat, nausea, or lightheaded. Remember, MINUTES DO MATTER. If you experience any of these heart attack warning signs, call to get immediate medical attention! Patient Survey You may receive a survey in the mail asking you about your stay with us. We want to hear from you, please share your experience with us by completing your survey. Thank you for choosing [facility]. Elsy Award Nomination The ELSY (Diseases Attacking the Immune SYstem) Award is an international recognition program that honors and celebrates the skillful, compassionate care nurses provide every day. Anyone who experiences or observes amazing care being provided by a nurse is encouraged to submit a nomination. To nominate your nurse, use your smart phone to scan the QR code below. Patient Portal You may access all of your results and other medical record information on our secure patient portal. If you are not signed up for this yet, please contact [employer] at [phone] to get signed up today. Patient Name: PARTH JOHNSON I have received this information and my questions have been answered. Patient/B2B Outside Sales Representative Name: Patient/B2B Outside Sales Representative Signature: Relationship to Patient: Witness Name/Signature: Date: Result Comment: Electronical ly Signed By: Parisa Castañeda.br\Date and Time Signed: 07/09/24 08:42 EDT PATIENT EDUCATION - TEXT Observed: 07/09 8:42 AM Status: C Source: [facility] Patient Education - Text Colonoscopy Care After Surgery Please read the instructions outlined below and refer to this sheet in the next few weeks. These discharge instructions provide you with general information on caring for yourself after you leave the hospital. Your doctor may also give you specific instructions. While your treatment has been planned according to the most current medical practices available, unavoidable complications occasionally occur. If you have any problems or questions after discharge, please call your doctor. ACTIVITY You may resume your regular activity, but move at a slower pace for the next 24 hours. Take frequent rest periods for the next 24 hours. Walking will help get rid of the air and reduce the bloated feeling in your abdomen (belly). No driving for 24 hours (because of the anesthesia (medicine) used during the test). You may shower. Do not sign any important legal documents or operate any machinery for 24 hours (because of the anesthesia used during the test). NUTRITION Drink plenty of fluids. You may resume your normal diet as instructed by your doctor. Begin with a light meal and progress to your normal diet. Heavy or fried foods are harder to digest and may make you feel nauseated (sick to your stomach). Avoid alcoholic beverages for 24 hours or as instructed. MEDICATIONS You may resume your normal medications unless your doctor tells you otherwise. WHAT YOU CAN EXPECT TODAY Some feelings of bloating in the abdomen. Passage of more gas than usual. Spotting of blood in your stool or on the toilet paper. FOLLOW-UP Your doctor will discuss the results of your test with you. SEEK IMMEDIATE MEDICAL ATTENTION IF: There is more than a spotting of blood in your stool. There is abdominal distention (your abdomen is swollen). There is vomiting. You have a temperature over 101.5 F. There is abdominal pain or discomfort that is severe or gets worse throughout the day. Oncology Colon Polyps Colon polyps are tissue growths inside the colon, which is part of the large intestine. They are one of the types of polyps that can grow in the body. A polyp may be a round bump or a mushroom-shaped growth. You could have one polyp or more than one. Most colon polyps are noncancerous (benign). However, some colon polyps can become cancerous over time. Finding and removing the polyps early can help prevent this. What are the causes? The exact cause of colon polyps is not known. What increases the risk? The following factors may make you more likely to develop this condition: ??? Having a family history of colorectal cancer or colon polyps. ??? Being older than 45 years of age. ??? Being younger than 45 years of age and having a significant family history of colorectal cancer or colon polyps or a genetic condition that puts you at higher risk of getting colon polyps. ??? Having inflammatory bowel disease, such as ulcerative colitis or Crohn's disease. ??? Having certain conditions passed from parent to child (hereditary conditions), such as: ? Familial adenomatous polyposis (FAP). ? Alexis syndrome. ? Turcot syndrome. ? Peutz?Jeghers syndrome. ? MUTYH-associated polyposis (MAP). ??? Being overweight. ??? Certain lifestyle factors. These include smoking cigarettes, drinking too much alcohol, not getting enough exercise, and eating a diet that is high in fat and red meat and low in fiber. ??? Having had childhood cancer that was treated with radiation of the abdomen. What are the signs or symptoms? Many times, there are no symptoms. If you have symptoms, they may include: ??? Blood coming from the rectum during a bowel movement. ??? Blood in the stool (feces). The blood may be bright red or very dark in color. ??? Pain in the abdomen. ??? A change in bowel habits, such as constipation or diarrhea. How is this diagnosed? This condition is diagnosed with a colonoscopy. This is a procedure in which a lighted, flexible scope is inserted into the opening between the buttocks (anus) and then passed into the colon to examine the area. Polyps are sometimes found when a colonoscopy is done as part of routine cancer screening tests. How is this treated? This condition is treated by removing any polyps that are found. Most polyps can be removed during a colonoscopy. Those polyps will then be tested for cancer. Additional treatment may be needed depending on the results of testing. Follow these instructions at home: Eating and drinking ??? Eat foods that are high in fiber, such as fruits, vegetables, and whole grains. ??? Eat foods that are high in calcium and vitamin D, such as milk, cheese, yogurt, eggs, liver, fish, and broccoli. ??? Limit foods that are high in fat, such as fried foods and desserts. ??? Limit the amount of red meat, precooked or cured meat, or other processed meat that you eat, such as hot dogs, sausages, amado, or meat loaves. ??? Limit sugary drinks. Lifestyle ??? Maintain a healthy weight, or lose weight if recommended by your health care provider. ??? Exercise every day or as told by your health care provider. ??? Do not use any products that contain nicotine or tobacco, such as cigarettes, e-cigarettes, and chewing tobacco. If you need help quitting, ask your health care provider. ??? Do not drink alcohol if: ? Your health care provider tells you not to drink. ? You are , may be , or are planning to become . ??? If you drink alcohol: ? Limit how much you use to: ? 0?1 drink a day for women. ? 0?2 drinks a day for men. ? Know how much alcohol is in your drink. In the [place] one drink equals one 12 oz bottle of beer (355 mL), one 5 oz glass of wine (148 mL), or one 1? oz glass of hard liquor (44 mL). General instructions ??? Take [id number] and prescription medicines only as told by your health care provider. ??? Keep all follow-up visits. This is important. This includes having regularly scheduled colonoscopies. Talk to your health care provider about when you need a colonoscopy. Contact a health care provider if: ??? You have new or worsening bleeding during a bowel movement. ??? You have new or increased blood in your stool. ??? You have a change in bowel habits. ??? You lose weight for no known reason. Summary ??? Colon polyps are tissue growths inside the colon, which is part of the large intestine. They are one type of polyp that can grow in the body. ??? Most colon polyps are noncancerous (benign), but some can become cancerous over time. ??? This condition is diagnosed with a colonoscopy. ??? This condition is treated by removing any polyps that are found. Most polyps can be removed during a colonoscopy. This information is not intended to replace advice given to you by your health care provider. Make sure you discuss any questions you have with your health care provider. Document Revised: 12/13/2020 Document Reviewed: 12/13/2020 [employer] Patient Education ? 2023 [employer]. OUTPATIENT SURGERY DISCHARGE INSTRUCTION Observed: 07/09/2024 8:36 AM Status: F Source: [facility] Outpatient Surgery Discharge Instruction [place] [id number] Patient Discharge Instructions PERSON INFORMATION Name: PARTH JOHNSON Date of : 1950 Current Date: 07/09/2024 08:36:44 PHYSICIANS Admitting Physician: Jona BANG MD Discharge Diagnosis: Colon polyp; Diverticulosis of sigmoid colon PARTH JOHNSON has been given the following list of follow-up instructions, prescriptions, and patient education materials: PATIENT FOLLOW-UP INFORMATION Diet: Other: high fiber diet Discharge Activity: Arrange for a responsible adult supervision for 24 hours Discharge Restrictions: No driving for 24 hrs, Do not operate machinery or tools, Do not make important decisions for 24 hours, Do not drink alcoholic beverages for 24 hours Call Your Doctor For: Persistent or heavy bleeding, Temperature above 101.5 degrees, Severe pain at the operative site, Persistent vomiting IF UNABLE TO CONTACT YOUR PHYSICIAN AND YOU FEEL IT IS AN EMERGENCY, GO TO THE NEAREST EMERGENCY ROOM OR CALL 911 ELIZABETH Jacobo DEBORAH K, have received the attached patient education materials/instructions and have verbalized understanding: May we do a follow up call? Yes No I was present when discharge instructions were given Patient Signature Date Clinican/Nurse Signature Date Follow up: With: Address: When: [address], [address], [address] [address] Business (1) Within 1 to 2 weeks Pharmacy Information: You may receive a survey from [employer] asking you to rate your care experience. Your feedback is important and will help us understand what we do well and how we can improve the quality of care we provide to you, your loved ones and our community. It???s an honor to serve you. Thank you for choosing [facility] HERE ARE THE MEDICATION CHANGES THAT OCCURRED DURING YOUR HOSPITAL STAY Medications to Continue with No Changes Other Medications ergocalciferol (Vitamin D2 2000 intl units oral capsule) 1 Capsules By Mouth every day. levothyroxine (Synthroid 75 mcg Tab) 1 Tablets By Mouth every day. multivitamin with minerals By Mouth every day. Oral. PATIENT EDUCATION INFORMATION Instructions: Medication Leaflets: INPATIENT PATIENT SUMMARY Observed: 09/2023 8:36 AM Status: F Source: [facility] Inpatient Patient Summary [place] [id number] [facility] Clinical Discharge Instructions PERSON INFORMATION Name: PARTH JOHNSON PHYSICIANS Admitting Physician: Jona BANG MD Attending Physician: Jona BANG MD PCP: Joel Arrington MD Discharge Diagnosis: Colon polyp; Diverticulosis of sigmoid colon Comment: PATIENT EDUCATION INFORMATION Instructions: Medication Leaflets: Follow up: With: Address: When: Jona BANG [address] [place] [address], [facility] [address] [id number] [facility] () Within 1 to 2 weeks MEDICATION LIST Medications to Continue with No Changes Other Medications ergocalciferol (Vitamin D2 2000 intl units oral capsule) 1 Capsules By Mouth every day. levothyroxine (Synthroid 75 mcg Tab) 1 Tablets By Mouth every day. multivitamin with minerals By Mouth every day. Oral. Comment: MAIN OR PREOPERATIVE RECORD Observed: 8:30 AM Status: F Source: [facility] Main OR Preoperative Record Holding Area Document Type FT Summary Primary Physician: Jona BANG MD Finalized Date/Time: 07/09/24 07:25:15 Pt. Name: ELIZABETHSOHAMPARTHDUNG Ruggiero/Sex: 1950 Female Med Rec #: [id number] Physician: Jona BANG MD Financial #: [id number] Pt. Type: O Room/Bed: / Admit/Disch: 07/09/24 07:05:46 - Institution: Case Times Holding FT Pre-Care Text: Verifies consent for planned procedure, identifies individual values and wishes concerning care, includes family members in perioperative teaching Secures patient's records' belongings, and valuables, maintains patient's dignity and privacy, and maintains patient confidentiality Entry 1 In Holding 07/09/24 07:15:00 Outcomes Met? Yes Last Modified By: Susana Magallon RN 07/09/24 07:24:44 Post-Care Text: The patient participates in decisions affecting his or her perioperative plan of care The patient's right to privacy is maintained Surgery Checklist FT Entry 1 Patient Birthday, ID Band Procedure History and Physical, Identification: Check, Patient Verification: Surgical Consent, With Participation Patient NPO after Midnight: Yes Date/Time: 07/09/24 00:00:00 Personal Items clothes, shoes Limitations: n/a Comment: Complaints of Pain: No Pain Comment: denies Operative Site n/a Marked By: n/a Marking: Availability Equipment Verified: Does Patient Smoke No Patient states Yes Comment - Adult Stu- spouse postop adult Supervision supervision available Case Cancelled in No Holding Area see comments below for reason Last Modified By: Susana Magallon RN 07/09/24 07:25:13 Finalized By: Susana Magallon RN Document Signatures Signed By: Susana Magallon RN 07/09/24 07:25 SURGICAL PATHOLOGY REPORT Observed: 09/2023 8:24 AM Status: F Source: [address] [id number]- Surgical Pathology Report Collected Date/Time: 07/09/2024 08:24 EDT Pathologist: Sixto DEJESUS PhD, Ana Reyes Date/Time: 07/09/2024 10:21 EDT AMY DEJESUS, Jona BANG MD, Jona Haddad Surgical Pathology Report - 07/14/2024 15:04 EST - Auth (Verified) Final Diagnosis POLYP, ASCENDING COLON, POLYPECTOMY: - TUBULAR ADENOMA. (Electronic Signature) Ana Henson MD PhD 07/14/2024 15:04 Clinical Information History of colon polyps Pre-Op Diagnosis: History of colon polyps Procedure: Colonoscopy Post-Op Diagnosis: 1. Diverticulosis of sigmoid colon 2. Colon polyp Specimen(s) Received Ascending colon polyp Gross Description Received in formalin labeled with patient name, number, and ascending colon polyp are three fragments of aldana/pink tissue ranging from less than 0.1 cm up to 0.4 cm in greatest dimension. Specimen measures in aggregate 0.5 x 0.4 x 0.1 cm. Specimen is entirely submitted in one cassette. (DC) DC:[facility] Microscopic Description Microscopic examination performed unless gross only specified. Performed By: #### [id number] # ### [facility] [address] [place] [id number] SURGICAL PATHOLOGY REPORT Observed: 09/2023 8:24 AM Status: F Source: [address] [address]- Surgical Pathology Report Collected Date/Time: 07/09/2024 08:24 EDT Pathologist: Sixto DEJESUS PhD, Ana Harrison Received Date/Time: 07/09/2024 10:21 EDT AMY DEJESUS, Jona BANG MD, Jona Haddad Surgical Pathology Report - 07/14/2024 15:04 EST - Auth (Verified) Final Diagnosis POLYP, ASCENDING COLON, POLYPECTOMY: - TUBULAR ADENOMA. (Electronic Signature) Ana Henson MD PhD 07/14/2024 15:04 Clinical Information History of colon polyps Pre-Op Diagnosis: History of colon polyps Procedure: Colonoscopy Post-Op Diagnosis: 1. Diverticulosis of sigmoid colon 2. Colon polyp Specimen(s) Received Ascending colon polyp Gross Description Received in formalin labeled with patient name, number, and ascending colon polyp are three fragments of aldana/pink tissue ranging from less than 0.1 cm up to 0.4 cm in greatest dimension. Specimen measures in aggregate 0.5 x 0.4 x 0.1 cm. Specimen is entirely submitted in one cassette. (DC) DC:[facility] Microscopic Description Microscopic examination performed unless gross only specified. Performed By: #### [id number] # ### [facility] [address] [place] [id number] MAIN OR INTRAOPERATIVE RECORD Observed: 07/09/2024 8:05 AM Status: C Source: [facility] Main OR Intraoperative Recor d IntraOp Document Type FT Summary Primary Physician: Jona BANG MD Finalized Date/Time: 07/13/24 11:39:27 Pt. Name: PARTH JOHNSON Keri WhaleyB./Sex: 1950 Female Med Rec #: [id number] Physician: Jona BANG MD Financial #: [id number] Pt. Type: O Room/Bed: / Admit/Disch: 07/09/24 07:05:46 - 07/09/24 23:59:59 Institution: Case Times FT Entry 1 Patient Times In Room 07/09/24 08:01:00 Out Room 07/09/24 08:33:00 Procedure Times Start 07/09/24 08:05:00 Stop 07/09/24 08:30:00 Anesthesia Times Start 07/09/24 08:01:00 Stop 07/09/24 08:33:00 Time at [place] 07/09/24 08:21:00 Last Modified By: Naun MALONEY, Susana Jones 07/09/24 08:33:17 General Comments: 07/13/24 Chart opened to check charges per Elias Gudino RN. [place] Case Attendance FT Entry 1 Entry 2 Entry 3 Case Attendee Colleen MCKINNEY, Muriel BANG MD, Jona Magallon RN, Susana Jones Role Performed CUSTOMER CONTACT SPECIALIST Surgeon - Primary Order Runner - Primary Time In 07/09/24 08:01:00 07/09/24 08:01:00 07/09/24 08:01:00 Time Out 07/09/24 08:33:00 07/09/24 08:33:00 07/09/24 08:33:00 Procedure COLONOSCOPY(.) COLONOSCOPY(.) COLONOSCOPY(.) Comments Dr. Bauman supervising case Last Modified By: Naun RN, Susana Magallon RN, Susana Magallon RN, Susana F 07/09/24 08:33:21 F 07/09/24 08:33:21 F 07/09/24 08:33:21 Entry 4 Case Attendee Jenny Rodriguez Role Performed Scrub - Primary Time In 07/09/24 08:01:00 Time Out 07/09/24 08:33:00 Procedure COLONOSCOPY(.) Comments Last Modified By: DendSusana hi RN 07/09/24 08:33:21 Perioperative Protocols FT Pre-Care Text: Implements protective measures prior to operative or invasive procedure, confirms identity before the operative or invasive procedure, verifies operative procedure, surgical site, and laterality Entry 1 Procedure(s) COLONOSCOPY(.) Patient Identity Birthday, ID Band Verified (select at Check, Patient least 2): Participation Consents / H and P Anesthesia Consent, Operative Site N/A Verified H&P, Surgery/Procedure Marking Verified Consent Surgical Site No Laterality Verified n/a Verified Procedure Verified Yes Correct Patient Yes Position Verified Availability Equipment, Medication Prep Dry n/a Verified (If Applicable) PreOp Antibiotic No Time Out Muriel Macias CRNA, Given Participants AMY DEJESUS, Jona Grant, Naun MALONEY, Michael Morgan Micala E Time Out Complete 07/09/24 08:03:00 Outcomes Met? Yes Last Modified By: Susana Magallon RN 07/09/24 08:05:20 Post-Care Text: The patient is free from signs and symptoms of injury caused by extraneous objects Allergy Information FT Pre-Care Text: Verifies allergies Entry 1 Allergies Reviewed? Yes Allergies Reviewed Self/Patient With Outcomes Met? Yes Last Modified By: Susana Magallon RN 07/09/24 08:05:26 Post-Care Text: The patient received appropriate medication(s) safely administered during the perioperative period Surgical Procedures FT Entry 1 Procedure Description Procedure COLONOSCOPY Modifiers . Surgeon Description Colonoscopy with ascending colon polypectomy. Primary Procedure Yes Primary Surgeon Jona BANG MD Start 07/09/24 08:05:00 Stop 07/09/24 08:30:00 Anesthesia Type General Surgical Service General Wound Class 2 - Clean-Contaminated Last Modified By: Susana Magallon RN 07/09/24 08:30:53 General Case Data FT Pre-Care Text: Classifies surgical wound, implements aseptic technique, initiates traffic control Entry 1 Case Information OR ENDO 2 FT Case Level Level 2 Wound Class 2 - Clean-Contaminated Specialty General ASA Class 2 Preop Diagnosis History of colon polyps Postop Same As Preop No Postop Diagnosis Diverticulosis, Outcomes Met? Yes ascending colon polyp Last Modified By: Susana Magallon RN 07/09/24 08:30:44 Post-Care Text: The patient is free from signs and symptoms of infection Skin Assessment (Pre Procedure) FT Pre-Care Text: Implements protective measures to prevent skin/ tissue injury due to thermal or mechanical sources Evaluates for signs and symptoms of physical injury to skin and tissue Entry 1 Skin Integrity Intact, [place], Warm, & Skin Abnormality No Dry Outcomes Met? Yes Last Modified By: Susana Magallon RN 07/09/24 08:05:57 Post-Care Text: The patient is free from signs and symptoms of injury caused by extraneous objects Patient Positioning FT Pre-Care Text: Identifies physical alterations that require additional precautions for procedure-specific positioning, verifies presence of prosthetics or corrective devices, positions the patient, evaluates the patient for signs and symptoms of injury as a result of positioning Entry 1 Procedure COLONOSCOPY(.) Body Position Lateral, right side up Feet Uncrossed? Yes Left Arm Position Resting at Side Right Arm Position Resting at Side Left Leg Position Extended Right Leg Position Extended Positioning Device Safety Strap, Pillow Under Head Large Press Points Checked Yes By Susana Magallon RN Outcomes Met? Yes Last Modified By: Susana Magallon RN 07/09/24 08:06:01 Post-Care Text: The patient is free from signs and symptoms of injury related to positioning Patient Care Devices FT Pre-Care Text: Implements protective measures to prevent skin/ tissue injury due to thermal or mechanical sources Entry 1 Entry 2 Equipment Type ENDOSCOPY VIDEO SYSTEM MONITOR CHARGE SURGERY Equipment Number [id number] Equipment Setting Outcomes Met? Yes Yes Last Modified By: Susana Magallon RN, RN, Madaline F 07/09/24 08:06:16 F 07/09/24 08:06:16 Post-Care Text: The patient is free from signs and symptoms of injury caused by extraneous objects Transport To OR Pre-Care Text: Transports according to individual needs. Evaluates for signs and symptoms of skin and tissue injury as a result of transfer or transport Entry 1 Via Cart By Susana Magallon RN Safety Precautions Side Rails Up Outcomes Met? Yes Last Modified By: Susana Magallon RN 07/09/24 08:06:20 Post-Care Text: The patient is free from signs and symptoms of injury related to transfer/transport Departure From OR Pre-Care Text: Transports according to individual needs. Evaluates for signs and symptoms of skin and tissue injury as a result of transfer or transport. Entry 1 Via Cart Safety Precautions Side Rails Up PostOp Destination PACU Transported By Susana Magallon RN Patient Status Stable Skin. Condition Intact, [place], Warm, & Dry Airway Maintenance Oxygen in Use? No Airway Device N/A Outcomes Met? Yes Last Modified By: Susana Magallon RN 07/09/24 08:06:50 Post-Care Text: The patient is free from signs and symptoms of injury related to transfer/transport General Comments: Report given to UPSETTING MACHINE OPERATOR, /,department mgr Administration FT Pre-Care Text: Verifies allergies, administers prescribed medications and solutions, administers prescribed antibiotic therapy and immunizing agents as ordered, evaluates response to medications Administers prescribed medications and solutions Entry 1 Expiration Date Yes Outcomes Met? Yes Verified Last Modified By: Susana Magallon RN 07/09/24 08:06:42 Post-Care Text: The patient received appropriate medication(s) safely administered during the perioperative period For [employer] please see scanned medication reconcilliation form for medications used at the field during the procedure. Cultures & Specimens FT Pre-Care Text: Manages specimen handling and disposition Manages culture specimen collection Entry 1 Cultures Ordered n/a Specimens Ordered Yes Specimen Disposition Designated OR Area Frozen Section Times Outcomes Met? Yes Last Modified By: Susana Magallon RN 07/09/24 08:24:25 Post-Care Text: The patient is free from signs and symptoms of injury caused by extraneous objects The patient is free from signs and symptoms of infection Sign Out FT Entry 1 Before Patient Leaves OR Nurse verbally Yes Nurse verbally n/a confirms with the confirms with the team the name of team that the procedure(s) instrument, sponge, recorded and needle counts are correct (or N/A) Nurse verbally Yes Nurse verbally Yes confirms with the confirms with the team how the team whether there specimen is labeled are any equipment (including patient problems to be name), if applicable addressed Sign Out Complete 07/09/24 08:30:00 Last Modified By: Susana Magallon RN 07/09/24 08:30:48 Case Comments <None> Finalized By: YOMI Gudino RN, Melinda Document Signatures Signed By: Susana Magallon RN 07/09/24 08:33 YOMI Gudino RN, Melinda 07/13/24 11:39 MAIN OR PACU II RECORD Observed: 024 8:05 AM Status: F Source: [facility] Main OR PACU II Record PACU Phase II Document Type FT Summary Primary Physician: Jona BANG MD Finalized Date/Time: 07/09/24 09:05:49 Pt. Name: PARTH JOHNSON Keri Ruggiero/Sex: 1950 Female Med Rec #: [id number] Physician: Jona BANG MD Financial #: [id number] Pt. Type: O Room/Bed: / Admit/Disch: 07/09/24 07:05:46 - Institution: Case Times PACU II FT Pre-Care Text: Identifies barriers to communication and implements measures to provide psychological support and determines knowledge level Develops individualized plan of care, and ensures continuity of care Maintains patient's dignity and privacy, and maintains patient confidentiality Identifies and reports philosophical, cultural, and spiritual beliefs and values Identifies individual values and wishes concerning care administers prescribed antibiotic therapy and immunizing agents as ordered, Evaluates postoperative tissue perfusion Implements thermoregulation measures, and monitors body temperature Evaluates postoperative respiratory status Evaluates postoperative cardiac status Evaluates postoperative neurological status Assesses pain control, collaborated in initiating patient-controlled analgesia and implements alternative methods of pain control Verifies allergies, administers prescribed medications and solutions, evaluates response to medications Entry 1 In PACU II 07/09/24 08:35:00 Discharge from PACU 07/09/24 09:05:00 II Outcomes Met? Yes Last Modified By: Parisa Castañeda I 07/09/24 09:05:46 Post-Care Text: The patient demonstrates knowledge of the expected response to the operative or invasive procedure The patient's care is consistent with the individualized perioperative plan of care The patient's right to privacy is maintained The patient's value system, lifestyle, ethnicity, and culture are considered, respected, and incorporated into the perioperative plan of care The patient participates in decisions affecting his or her perioperative plan of care. The patient is free from signs and symptoms of infection The patient has wound/tissue perfusion consistent with or improved from baseline levels established preoperatively The patient is at or returning to normothermia at the conclusion of the immediate postoperative period The patient's respiratory function is consistent with or improved from baseline levels established preoperatively The patient's cardiovascular status is consistent with or improved from baseline levels established preoperatively The patient's neurological status is consistent with or improved from baseline levels established preoperatively The patient demonstrates and/or reports adequate pain control throughout the perioperative period The patient received appropriate medication(s), safely administered during the perioperative period Finalized By: Parisa Castañeda I Document Signatures Signed By: Parisa Castañeda I 07/09/24 09:05 HISTORY AND PHYSICAL Observed: 7:45 AM Status: F Source: [facility] History and Physical Patient: PARTH JOHNSON Age: 74 years Sex: Female : 1950 Associated Diagnoses: None Author: Jona BANG MD Subjective no changes to H & P Result Comment: Electronical ly Signed By: Jona BANG MD\.br\Date and Time Signed: 07/09/24 11:02 EDT PROCEDURAL Observed: 07/09/2024 7:34 AM Status: C Source: [facility] Procedural Patient: PARTH JOHNSON Age: 74 years Sex: Female : 1950 Associated Diagnoses: None Author: Amandeep Bauman MD. Preoperative Information Anesthesia Preop Info: Time patient last ate or drank 07/09/2024 00:00:00. Anesthesia history: Patient history: None. Family history+: None. Informed consent: Signed by patient. Re-evaluation prior to induction: Initial evaluation reviewed: No significant change. Review of Systems Eye Ear/Nose/Mouth/Throat Respiratory: No shortness of breath, No cough. Cardiovascular: Negative, No chest pain. Gastrointestinal: No heartburn. Musculoskeletal Neurologic Health Status Allergies: Nonallergic Reactions (Selected) Severity Not Documented Aspirin- Nausea and vomiting., Allergies (1) Active Severity Reaction aspirin Nausea and vomiting Current medications: (Selected) Inpatient Medications Ordered Lactated Ringers IV Shelia 1000 mL 1,000 mL: 1,000 mL, IV, 100 mL/hr, Routine, Start date 07/09/24 7:33:00 EDT, 10 hour(s), Total volume (mL): 1,000, 55.4 kg, 1.59, m2 Sodium Chloride 0.9% IV Shelia 1000 mL 1,000 mL: 1,000 mL, IV, 20 mL/hr, Routine, Start date 07/09/24 6:42:00 EDT, 50 hour(s), Total volume (mL): 1,000, 55.4 kg, 1.59, m2 Documented Medications Documented Synthroid 75 mcg Tab: 75 mcg = 1 tab(s), Oral, Daily, Refills(s) 0, Thyroid Vitamin D2 2000 intl units oral capsule: 50 mcg = 1 cap(s), Oral, Daily, cap(s), Refills(s) 0, Prophylaxis multivitamin with minerals: Oral, Daily, Refill(s) 0, Oral, Prophylaxis, Home Medications (3) Active multivitamin with minerals , Oral, Daily Synthroid 75 mcg Tab 75 mcg = 1 tab(s), Oral, Daily Vitamin D2 2000 intl units oral capsule 50 mcg = 1 cap(s), Oral, Daily , Medications (2) Active Scheduled: (0) Continuous: (2) Lactated Ringers 1,000 mL 1,000 mL, IV, 100 mL/hr Sodium Chloride 0.9% 1,000 mL 1,000 mL, IV, 20 mL/hr PRN: (0) Problem list: All Problems Anorectal skin tags / SNOMED CT 207505551 / Confirmed Eczema / SNOMED CT 84933104 / Confirmed Hyperlipidemia / SNOMED CT 70435953 / Confirmed Hypothyroidism / SNOMED CT 69025100 / Confirmed Lumbar radiculopathy / SNOMED CT 352690187 / Confirmed Osteopenia / SNOMED CT 875534931 / Confirmed Personal history of colonic polyps / SNOMED CT 1847261199 / Confirmed Serrated adenoma of colon / SNOMED CT 3896462585 / Confirmed Tubular adenoma of colon / SNOMED CT 827583360 / Confirmed Vitamin D deficiency / SNOMED CT 22949051 / Confirmed Canceled: BMI 20.0-20.9, adult / SNOMED CT 8145316133, Active Problems (10) Anorectal skin tags Eczema Hyperlipidemia Hypothyroidism Lumbar radiculopathy Osteopenia Personal history of colonic polyps Serrated adenoma of colon Tubular adenoma of colon Vitamin D deficiency Histories Past Medical History: No active or resolved past medical history items have been selected or recorded. Family History: Entire family history is negative. Procedure history: Colonoscopy ([id number]) on 02/19/2023 at 72 Years. Colonoscopy ([id number]) on 11/10/2017 at 67 Years. Colonoscopy ([id number]) in 2006 at 57 Years. section (13559897). Thyroidectomy (74966698). Hysterectomy (464845578). Social History Social & Psychosocial Habits Alcohol 06/08/2024 Risk Assessment: Denies Alcohol Use Substance Abuse 06/08/2024 Risk Assessment: Denies Substance Abuse Tobacco 06/08/2024 Tobacco Use: Never (less than 100 in l Smokeless tobacco use: Never . Physical Examination Vital Signs 07/09/2024 7:20 EDT Temperature Temporal Artery 36.5 DegC Heart Rate Monitored 70 bpm Respiratory Rate Monitored 14 br/min Systolic Blood Pressure 118 mmHg Diastolic Blood Pressure 60 mmHg Blood Pressure Location Left arm SpO2 96 % Vital Signs (last 24 hrs) Last Charted Temp Temporal 36.5 DegC (JUL 09 07:20) Heart Rate Monitored 70 bpm (JUL 09 07:20) Resp Rate 14 br/min (JUL 09 07:20) SBP 118 mmHg (JUL 09 07:20) DBP 60 mmHg (JUL 09 07:20) Weight 55.4 kg (JUL 09 07:23) BMI 20.32 (JUL 09 07:23) Measurements from flowsheet : Measurements 07/09/2024 7:23 EDT Height/Length Measured 165.1 cm Height/Length Dosing 165.1 cm Weight Dosing 55.4 kg BSA Measured 1.59 m2 Body Mass Index Measured 20.32 kg/m2 Weight Measured 55.4 kg Airway: Mallampati classification: II (soft palate, fauces, uvula visible). Respiratory: Lungs are clear to auscultation, Respirations are non-labored, adequate air exchange. Cardiovascular: Regular rhythm, No murmur. Review / Management Results review: No qualifying data available . Plan [place] [employer] Anesthesiologists (ASA) physical status classification: Class II. Anesthetic Preoperative Plan: Anesthesia General. PROCEDURAL Observed: 07/09/2024 7:34 AM Status: C Source: [facility] Progress Note-Physician Patient: PARTH JOHNSON Age: 74 years Sex: Female : 1950 Associated Diagnoses: None Author: Mitul DEJESUS, Amandeep Vela Preoperative Information Anesthesia Preop Info: Time patient last ate or drank 07/09/2024 00:00:00. Anesthesia history: Patient history: None. Family history+: None. Informed consent: Signed by patient. Re-evaluation prior to induction: Initial evaluation reviewed: No significant change. Review of Systems Eye Ear/Nose/Mouth/Throat Respiratory: No shortness of breath, No cough. Cardiovascular: Negative, No chest pain. Gastrointestinal: No heartburn. Musculoskeletal Neurologic Health Status Allergies: Nonallergic Reactions (Selected) Severity Not Documented Aspirin- Nausea and vomiting., Allergies (1) Active Severity Reaction aspirin Nausea and vomiting Current medications: (Selected) Inpatient Medications Ordered Lactated Ringers IV Shelia 1000 mL 1,000 mL: 1,000 mL, IV, 100 mL/hr, Routine, Start date 07/09/24 7:33:00 EDT, 10 hour(s), Total volume (mL): 1,000, 55.4 kg, 1.59, m2 Sodium Chloride 0.9% IV Shelia 1000 mL 1,000 mL: 1,000 mL, IV, 20 mL/hr, Routine, Start date 07/09/24 6:42:00 EDT, 50 hour(s), Total volume (mL): 1,000, 55.4 kg, 1.59, m2 Documented Medications Documented Synthroid 75 mcg Tab: 75 mcg = 1 tab(s), Oral, Daily, Refills(s) 0, Thyroid Vitamin D2 2000 intl units oral capsule: 50 mcg = 1 cap(s), Oral, Daily, cap(s), Refills(s) 0, Prophylaxis multivitamin with minerals: Oral, Daily, Refill(s) 0, Oral, Prophylaxis, Home Medications (3) Active multivitamin with minerals , Oral, Daily Synthroid 75 mcg Tab 75 mcg = 1 tab(s), Oral, Daily Vitamin D2 2000 intl units oral capsule 50 mcg = 1 cap(s), Oral, Daily , Medications (2) Active Scheduled: (0) Continuous: (2) Lactated Ringers 1,000 mL 1,000 mL, IV, 100 mL/hr Sodium Chloride 0.9% 1,000 mL 1,000 mL, IV, 20 mL/hr PRN: (0) Problem list: All Problems Anorectal skin tags / SNOMED CT 877622572 / Confirmed Eczema / SNOMED CT 42781202 / Confirmed Hyperlipidemia / SNOMED CT 54925806 / Confirmed Hypothyroidism / SNOMED CT 52386333 / Confirmed Lumbar radiculopathy / SNOMED CT 842974194 / Confirmed Osteopenia / SNOMED CT 708864332 / Confirmed Personal history of colonic polyps / SNOMED CT 2563607030 / Confirmed Serrated adenoma of colon / SNOMED CT 3921783467 / Confirmed Tubular adenoma of colon / SNOMED CT 565440385 / Confirmed Vitamin D deficiency / SNOMED CT 47412679 / Confirmed Canceled: BMI 20.0-20.9, adult / SNOMED CT 4065764396, Active Problems (10) Anorectal skin tags Eczema Hyperlipidemia Hypothyroidism Lumbar radiculopathy Osteopenia Personal history of colonic polyps Serrated adenoma of colon Tubular adenoma of colon Vitamin D deficiency Histories Past Medical History: No active or resolved past medical history items have been selected or recorded. Family History: Entire family history is negative. Procedure history: Colonoscopy ([id number]) on 02/19/2023 at 72 Years. Colonoscopy ([id number]) on 11/10/2017 at 67 Years. Colonoscopy ([id number]) in 2006 at 57 Years. section (43897903). Thyroidectomy (85537798). Hysterectomy (906958097). Social History Social & Psychosocial Habits Alcohol 06/08/2024 Risk Assessment: Denies Alcohol Use Substance Abuse 06/08/2024 Risk Assessment: Denies Substance Abuse Tobacco 06/08/2024 Tobacco Use: Never (less than 100 in l Smokeless tobacco use: Never . Physical Examination Vital Signs 07/09/2024 7:20 EDT Temperature Temporal Artery 36.5 DegC Heart Rate Monitored 70 bpm Respiratory Rate Monitored 14 br/min Systolic Blood Pressure 118 mmHg Diastolic Blood Pressure 60 mmHg Blood Pressure Location Left arm SpO2 96 % Vital Signs (last 24 hrs) Last Charted Temp Temporal 36.5 DegC (JUL 09:) Heart Rate Monitored 70 bpm (JUL 09:) Resp Rate 14 br/min (JUL 09) SBP 118 mmHg (JUL 09:) DBP 60 mmHg (JUL 09:) Weight 55.4 kg (JUL 09) BMI 20.32 (NOV 01 07:23) Measurements from flowsheet : Measurements 07/09/2024 7:23 EDT Height/Length Measured 165.1 cm Height/Length Dosing 165.1 cm Weight Dosing 55.4 kg BSA Measured 1.59 m2 Body Mass Index Measured 20.32 kg/m2 Weight Measured 55.4 kg Airway: Mallampati classification: II (soft palate, fauces, uvula visible). Respiratory: Lungs are clear to auscultation, Respirations are non-labored, adequate air exchange. Cardiovascular: Regular rhythm, No murmur. Review / Management Results review: No qualifying data available . Plan [place] [employer] Anesthesiologists (ASA) physical status classification: Class II. Anesthetic Preoperative Plan: Anesthesia General. OK Result Comment: Electronical ly Signed By: Mitul DEJESUS, Amandeep Vela\.br\Date and Time Signed: 07/09/24 07:51 EDT ALLERGIES DATE TYPE / CODE NAME / CODE REACTION SEVERITY SOURCE 11/13/2008 /[id number](SNOMED CT) aspirin [id number] [facility] ENCOUNTERS ADMIT/DISCHARGE ACCOUNT NUMBER ADMITTING ENCOUNTER CLASS LOCATION SOURCE 07/27/2024/ 4 [id number] Ambulatory [facility] 07/09/2024/ 4 [id number] Jona BANG [facility]/2023 [id number] Ambulatory [facility] ding:[facility] PAYERS ENCOUNTER GUARANTOR PAYER SUBSCRIBER SOURCE 07/27/2024 PARTH GR: [place] [address]Tel: () Primary Insurance:MEDICAREPoli cy Number: [id number] Date:[id number] [address] [address]CO: PARTH MCMILLAN [facility] 07/27/2024 Secondary Insurance:Miscellaneou s Insurance CompanyPolicy Number: [id number] Date:[id number] [address] [facility], [place] [address]OO: PARTH K [facility] 07/09/2024 PARTH GR: [address]Tel: () Primary Insurance:MEDICAREPoli cy Number: [id number] Date:[id number], [place] [address]WG: PARTH K [facility] 07/09/2024 Secondary Insurance:[facility] Insurance CompanyPolicy Number: [id number] Date:[id number] [address]YW: [facility] Keri [facility]
--- OUTSIDE RECORDS SUMMARY | 2025-06-09 08:48 | XMS_ITS | Clinical Summary ---
Author Organization [facility] Address [address] [place], [place] [address] Care Team Providers Care System Auditor Name Role Phone Ace WATSON MD, Nathaniel Liu Primary Care Provider [phone]- [phone] Allergies Active Allergy Reactions Criticality Noted Date Comments Risedronate Sodium Unknown 12/18/2012 Aspirin GI Upset 11/14/2008 Levothyroxine Other: See Comments 12/18/2012 dizziness Medications acetaminophen(T YLENOL 325 MG TAB) Take two(2) tablets every four(4) to six(6) hours as needed. 0 11/14/2008 Active calcium-vitamin D3-vitamin K 650 mg-12.5 mcg-40 mcg chew Take by mouth. 08/14/2020 Active magnesium oxide (MAG-OX) 400 mg (241.3 mg magnesium) tablet Take 1 tablet by mouth once daily. 08/14/2020 Active cholecalciferol , vitamin D3, (D3-5000 ORAL) Take by mouth. Active levothyroxine (SYNTHROID) 75 mcg tablet Take 1 tablet by mouth once daily. 90 tablet 3 09/11/2022 Active Active Problems Problem Noted Date Diagnosed Date Postsurgical hypothyroidism 09/14/2021 Papillary thyroid carcinoma 02/17/2018 Nontoxic single thyroid nodule 12/31/2016 Immunizations Immunization Administration Dates Next Due influenza (HD-IIV3) vaccine, age 65+ yr, high dose, trivalent, PF (FLUZONE HIGH-DOSE) 07/02/2018 influenza (IIV3) vaccine, tr ivalent, PF, intradermal (FLUZONE INTRADERMAL) 05/31/2019,05/15/2015 influenza (IIV4) vaccine, ag e 6 mo - 64 yr, quadrivalent (AFLURIA, FLULAVAL, FLUZONE) 06/08/2017 influenza (IIV4) vaccine, qu adrivalent (AFLURIA, FLULAVAL, FLUZONE) 08/12/2016 influenza (aIIV3) vaccine, a ge 65+ yr, trivalent, PF (FLUAD) 06/30/2018 influenza vaccine, unspecified formulation 06/08 pneumococcal conjugate (PCV1 3) vaccine, 13 valent (PREVNAR 13) 08/28/2017 pneumococcal polysaccharide (PPV23) vaccine, 23 valent (PNEUMOVAX 23) 10/29/2017 zoster (RZV) vaccine, recombinant (SHINGRIX) ,10/03/2018 zoster (ZVL) vaccine, live (ZOSTAVAX) 11/09/2014 ,02/08/2014 Family History Medical History Relation Comments unknown Father None Mother Relation Status Comments Father Mother Social History Tobacco Use Types Packs/Day Years Used Date Smoking Tobacco: Never Smokeless Tobacco: Never Alcohol Use Standard Drinks/Week Comments No 0 (1 standard drink = 0.6 oz pur e alcohol) Area Deprivation Index Answer Date Sanjiv rded National Score (1-100), lower number is lower ri sk 60 09/24/2022 State Score (1-10), lower number is lower risk N ot on file 09/24/2022 Data from: https://www.neighborhoodatlas.[facility].edu/. Last address used for calculation [address] [address] 09/24/2022 Comments No Sex and Gender Information Value Date Recorded Sex Assigned at Not on file Legal Sex Female 8:17 AM EST Gender Identity Not on file Sexual Orientation Not on file Last Filed Vital Signs Vital Sign Reading Time Taken Comments Blood Pressure 132/84 09/11/2022 3:35 PM EST Pulse 61 09/11/2022 3:35 PM EST Temperature 36.5 C (97.7 F) 01/25/2017 6:00 AM EDT Respiratory Rate 19 01/25/2017 6:00 AM EDT Oxygen Saturation 99% 01/25/2017 6:00 AM EDT Inhaled Oxygen Concentration - - Weight 54.9 kg (121 lb) 09/11/2022 3:35 PM EST Height 165.1 cm (5' 5 ) 09/11/2022 3:35 PM EST Body Mass Index 20.14 09/11/2022 3:35 PM EST Plan of Treatment Health Maintenance Due Date Last Done Comments Annual PCP Team Chronic Dise ase Visit 1970 Anxiety Screening 1970 Depression Screening 1970 Hepatitis C Screening 1970 CT Colonography 1997 Cologuard (FIT-DNA) 1997 Fecal Occult Blood 1997 Lipid Screening 1997 Sigmoidoscopy 1997 Colonoscopy 12/19/2007 12/18/2006 Colorectal Cancer Screening 12/19/2007 Mammogram Screening 12/18/2010 12/18/2009 Medicare Annual Wellness Visit 06/08/2017 Bone Density Screening 2017 Diabetes Screening 01/15/2020 01/14/2017 Advance Directive Discussion 09/08/2024 Influenza Vaccine (#1) 2025 2, 06/22/2021, 05/10/2020, Additional history exists RSV Vaccine (1 - 1-dose 75+ series) 2027 DTaP,Tdap,Td Vaccine (2 - Td or Tdap) 09/06/2030 09/06/2020 Pneumococcal Vaccine: 50+ Completed 10/29/2017, Shingrix Vaccine Completed 03/26/2019, , 11/09/2014, Additional history exists Procedures Procedure Name Priority Date/Time Associated Diagnosis Comments BASIC METABOLIC PANEL Routine 01/14/2017 1:00 PM EDT Preoperative examination from Last 3 Months or Most Recently Relevant to Health Maintenance Results * (ABNORMAL) BASIC METABOLIC PNL (01/14/2017 1:00 PM EDT) [facility] Signature Glucose 106(H) 74 - 99 mg/dL 01/14/2017 4:24 PM EDT [facility] Comment: The [place] Diabetes Association (ADA) provides guidance for cutoff values for fasting glucose and random glucose. The ADA defines fasting as no caloric intake for at least 8 hours. Fasting plasma glucose results between 100 to 125 mg/dL indicate increased risk for diabetes (prediabetes). Fasting plasma glucose results greater than or equal to 126 mg/dL meet the criteria for diagnosis of diabetes. In the absence of unequivocal hyperglycemia, results should be confirmed by repeat testing. In a patient with classic symptoms of hyperglycemia or hyperglycemic crisis, random plasma glucose results greater than or equal to 200 mg/dL meet the criteria for diagnosis of diabetes. Reference: Standards of Medical Care in Diabetes 2016, [place] Diabetes Association. Diabetes Care. 2016.39(Suppl 1). BUN 23(H) 7 - 21 mg/dL 01/14/2017 4:24 PM EDT [facility] Creatinine 0.93 0.58 - 0.96 mg/dL 01/14/2017 4:24 PM EDT [facility] Sodium 145(H) 136 - 144 mmol/L 01/14/2017 4:24 PM EDT [facility] Potassium 4.9 3.7 - 5.1 mmol/L 01/14/2017 4:24 PM EDT [facility] Chloride 103 97 - 105 mmol/L 01/14/2017 4:24 PM T [facility] CO2 27 22 - 30 mmol/L 01/14/2017 4:24 PM T [facility] Anion Gap 15 9 - 18 mmol/L 01/14/2017 4:24 PM T [facility] Calcium 9.9 8.5 - 10.2 mg/dL 01/14/2017 4:24 PM T [facility] eGFR- >60 01/14/2017 4:24 PM T [facility] eGFR-All Other Races >60 . 01/14/2017 4:24 PM T [facility] Comment: eGFR (Estimated GFR) Units of measure: mL/min/1.73 meters squared eGFR is derived from the reexpressed MDRD Study equation using the following parameters: serum creatinine, age, gender and race. The creatinine assay has been calibrated to be traceable to IDMS. An eGFR <60 mL/min/1.73m2 for >3 months is consistent with chronic kidney disease. Refer to KDOQI guidelines for clinical interpretation. In patients with unstable renal function, e.g. those with acute kidney injury, the eGFR may not accurately reflect actual GFR. Blood specimen (specimen) BLOOD SPECIMEN / Unknown 01/14/2017 1:00 PM EDT 01/14/2017 1:02 PM EDT us Ivelisse Castro MD LABORATORY Final Res ult [facility] [address] [place] [address] from Last 3 Months or Most Recently Relevant to Health Maintenance Insurance MEDICARE [employer] Care Teams System Auditor Relationship Specialty Start Date End Date Nathaniel Bello II, MD [address] [facility] [address] [place] [address] PCP - General Internal Medicine 01/22/16
--- OUTSIDE RECORDS SUMMARY | 2025-06-09 08:48 | XMS_ITS | Clinical Summary ---
Author Organization [facility] Address [address] [place] [address] Care Team Providers Care Backend Tester Name Role Phone Unavailable Primary Care Provider Unavailabl e Social History Tobacco Use Types Packs/Day Years Used Date Smoking Tobacco: Never Assessed Comments Unknown Sex and Gender Information Value Date Recorded Sex Assigned at Not on file Legal Sex Female 6:46 PM EDT Gender Identity Not on file Sexual Orientation Not on file Last Filed Vital Signs Vital Sign Reading Time Taken Comments Blood Pressure 114/68 02/11/2019 12:00 PM EDT Pulse - - Temperature - - Respiratory Rate - - Oxygen Saturation - - Inhaled Oxygen Concentration - - Weight 55.8 kg (123 lb) 04/26/2020 12:00 PM EDT Height 163.8 cm (5' 4.5 ) 04/26/2020 12:00 PM ED T Body Mass Index 20.79 04/26/2020 12:00 PM EDT Plan of Treatment Not on file Insurance MEDICARE
--- NOTE | 2025-06-09 08:58 | US_ITS ---
The [address] [address] Patient Name: PARTH JOHNSON MRN: [id number] date: 1950 Sex: F Assigned Patient Location: US Current Patient Location: US Accession/Order Number: [id number] Exam Date: 06/09/2025 09:00 Report Date: 06/09/2025 10:16 At the request of: HILARIO GOMEZ MD Procedure: US renal bladder BILATERAL RENAL AND BLADDER ULTRASOUND CLINICAL HISTORY: Hematuria and frequent urinary tract infections COMPARISON: None Estimation of renal size is approximately 9.3 cm on the right and 7.9 cm on the left. No shadowing calculi or hydronephrosis are identified. No renal mass lesions were imaged. There is no perinephric fluid. The urinary bladder is partially distended with a volume of 256 mL . No contour or intraluminal abnormalities are seen. Bilateral ureteral jets are visualized. The post void bladder volume is 69 mL. US/US renal bladder IMPRESSION: NO OBSTRUCTIVE UROPATHY. POST VOID BLADDER RESIDUAL. Impression dictated by: Pam Ribeiro M.D. 06/09/2025 10:16 AM Dictation Location: [place] [address] Electronically authenticated by: [id number] Y Date: 06/09/2025 10:16
--- NOTE | 2025-06-09 08:58 | MM_ITS ---
Patient Name: PARTH JOHNSON MR#: [id number] : 1950 Exam Date: 06/09/2025 Ordering Doctor: DR HILARIO GOMEZ . RADIOLOGY REPORT PROCEDURE: MM TOMOSYNTHESIS SCREENING BI COMPARISON: MM TOMOSYNTHESIS DIAGNOSTIC BI, 06/04/2024. MM TOMOSYNTHESIS SCREENING BI, 06/27/2023. MG MAMM SCREEN 3D REYES CAD, 06/26/2022. MG MAMM REYES SCRN W CAD DIG, 02/03/2013. INDICATIONS: Screening Calculator Name NCI Breast Cancer Risk Assessment Tool 5 Year Breast Cancer Risk 2.60% Lifetime Breast Cancer Risk 6.70% Personal Breast Cancer No Personal Ovarian Cancer No Treatments None Family Cancers None LOCATION: [facility] BREAST COMPOSITION: The breasts are heterogeneously dense, which may obscure small masses. FINDINGS: RIGHT BREAST: No significant suspicious finding. Benign-appearing calcifications are present. LEFT BREAST: No significant suspicious finding. Benign-appearing calcifications are present. DIAGNOSTIC CATEGORY 2--BENIGN FINDING. NO CHANGE FROM COMPARISON. RECOMMENDATIONS: ROUTINE MAMMOGRAM AND CLINICAL EVALUATION IN 12 MONTHS. Dictated by: Jose Crook MD on 06/09/2025 at 17:05 Approved by: Jose Crook MD on 06/09/2025 at 17:08
== END 2025-06-09 08:45 | disposition home or self-care (01) ==
LOC: US 08:46
PROVIDERS: PCP Family Medicine; Visit Provider Family Medicine
DX: R31.9 Hematuria, unspecified (principal); Z12.31 Encounter for screening mammogram for malignant neoplasm of breast
CPT/HCPCS: 76770; 77063; 77067